=== PATIENT | male | born 1990 | race Caucasian/White ===

== ENCOUNTER 2016-12-02 18:53 | Emergency (ER) | payer OTHER ==
[~2016-12-02] VITALS: Ht 165.1 cm; Wt 90.1 kg
[~2016-12-02 18:53] MED LIST: ATRITAB PO; CIAL5TAB PO; PSEU30TA PO; TERB5 PO
[2016-12-02 19:11] VITALS: BP 155/94; PULSE 85; RESP 20; TEMP 98.9; O2SAT 100
[2016-12-02] MEDS ORDERED: SUDA30TA2 PO (19:32)
[2016-12-02] MEDS ORDERED: ABAC1TAB3 PO (19:32)
[2016-12-02] MEDS ORDERED: SODIUM CHLOR 0.9% 1000 ML INJ 1,000 ML IV SCH (19:43)
[2016-12-02] MEDS ORDERED: SODIUM CHLORIDE 0.9% FLUSH 5 ML FLUSH IVF PRN (19:45)
[2016-12-02] MEDS ORDERED: KETOROLAC TROMETHAMINE 30 MG/ML (IVP) VIAL IV PUSH ONE (20:00)
[2016-12-02] MEDS ORDERED: ONDANSETRON HCL 4 MG/2 ML VIAL IV PUSH ONE (20:00)
[2016-12-02 20:06] LABS: AUTOMATED NEUTROPHIL # 2.7 TH/MM3 (1.8-7.7); BASOPHIL # 0.1 TH/MM3 (0-0.2); BASOPHIL % 1.9 % (0.0-2.0); EOSINOPHIL % 0.6 % (0.0-4.0); HEMATOCRIT 44.9 % (39.0-51.0); HEMO FLAGS DIFF FINAL; LYMPH % 29.7 % (9.0-44.0); LYMPHOCYTE # 1.3 TH/MM3 (1.0-4.8); MEAN CELL VOLUME 94.6 FL (80.0-100.0); MEAN CORPUSCULAR HGB CONC 34.8 % (32.0-36.0); NEUT % 61.8 % (16.0-70.0); PLATELET COUNT 166 TH/MM3 (150-450); RED BLOOD COUNT 4.75 MIL/MM3 (4.50-5.90); WHITE BLOOD COUNT 4.4 TH/MM3 (4.0-11.0)
[2016-12-02 20:06] LABS: BLOOD, URINE LARGE (NEG); GLUCOSE,URINE NEG (NEG); KETONE, URINE NEG (NEG); NITRITE,URINE NEG (NEG); PH, URINE 5.5 (5.0-8.5)
[2016-12-02 20:17] VITALS: BP 154/71; PULSE 78; RESP 18; O2SAT 98
[2016-12-02 20:18] LABS: BICARBONATE 29.8 MEQ/L (21.0-32.0)
[2016-12-02 20:32] LABS: METHOD OF COLLECTION VOIDED; URINE COLOR RED (YELLW/STRAW)
[2016-12-02 20:33] LABS: COMMENT (UR) CULT NOT INDICATED; CULTURE IF INDICATED CULT NOT INDICATED; RBC, URINE INNUM /hpf (0-3); SQUAMOUS EPITHELIAL CELL URINE 0-2 /hpf (0-5)
[2016-12-02] MEDS ORDERED: TAMS5CAP PO (21:01)
[2016-12-02] MEDS ORDERED: HYDR-3366 PO (21:01)
[2016-12-02] MEDS ORDERED: ZOFR4TAB3 SL (21:01)
--- NOTE | 2016-12-02 21:02 | PD ---
HPI Chief Complaint: Flank/Kidney Pain Time Seen by Provider: 19:43 Travel History International Travel<30 days: No Contact w/Intl Traveler<30days: No Traveled to known affect area: No History of Present Illness HPI Patient 26-year-old male with a history of HIV presents to emergency department with right flank pain dysuria and hematuria. Patient states symptoms been waxing and waning sharp in nature for the past day or so. No history of kidney stones. Denies any history of fever mild nausea without vomiting. Tried ibuprofen prior to arrival without any relief. PFSH Past Medical History Arthritis: No Asthma: No Autoimmune Disease: Yes (hiv) Heart Rhythm Problems: No Cancer: No Cardiovascular Problems: No High Cholesterol: No Chest Pain: No Congestive Heart Failure: No COPD: No Cerebrovascular Accident: No Diabetes: No Diminished Hearing: No Gastrointestinal Disorders: Yes (ON ADMIT) GERD: No Genitourinary: Yes (RECURRENT PRIAPISM) Headaches: No Hiatal Hernia: No Hypertension: No Immune Disorder: Yes (HIV POSITIVE) Implanted Vascular Access Dvce: No Kidney Stones: No Musculoskeletal: No Neurologic: No Psychiatric: No Reproductive: No Respiratory: No Immunizations Current: Yes Migraines: No Renal Failure: No Seizures: No Sleep Apnea: No Thyroid Disease: No Ulcer: No Past Surgical History Abdominal Surgery: No AICD: No Arteriovenous Shunt: No Cardiac Surgery: No Ear Surgery: No Endocrine Surgery: No Eye Surgery: No Genitourinary Surgery: Yes (HYPOSPADIA) Gynecologic Surgery: No Insulin Pump: No Joint Replacement: No Neurologic Surgery: No Oral Surgery: No Pacemaker: No Thoracic Surgery: No Other Surgery: Yes Social History Alcohol Use: Yes (OCCASIONALLY) Tobacco Use: No Substance Use: No Allergies-Medications (Allergen,Severity, Reaction): Coded Allergies: No Known Allergies (Verified , 12/04/16) Reported Meds & Prescriptions Reported Meds & Active Scripts Active Zofran Odt (Ondansetron Odt) 4 Mg Tab 4 Mg SL Q6HR PRN [place] (Hydrocodone-Acetaminophen) 10-325 Mg Tab 1 Tab PO Q6H PRN Flomax (Tamsulosin HCl) 0.4 Mg Cap 0.4 Mg PO HS Reported Triumeq (Tisxlxdu-Wkosyrcrcgpz-Wtkdipmlig) 600-50-300 Mg Tab 1 Tab PO HS Hazardous agent; use appropriate precautions for handling & disposal. Sudafed (Pseudoephedrine HCl) 30 Mg Tab 30 Mg PO HS Review of Systems Except as stated in HPI: all other systems reviewed are Neg Physical Exam Narrative GENERAL: Well-developed well-nourished no apparent distress SKIN: Warm and dry. HEAD: Atraumatic. Normocephalic. EYES: Pupils equal and round. No scleral icterus. No injection or drainage. ENT: No nasal bleeding or discharge. Mucous membranes pink and moist. NECK: Trachea midline. No JVD. CARDIOVASCULAR: Regular rate and rhythm. No murmur appreciated. RESPIRATORY: No accessory muscle use. Clear to auscultation. Breath sounds equal bilaterally. GASTROINTESTINAL: Abdomen soft, non-tender, nondistended. Hepatic and splenic margins not palpable. MUSCULOSKELETAL: No obvious deformities. No clubbing. No cyanosis. No edema. Mild CVA tenderness on the right. NEUROLOGICAL: Awake and alert. No obvious cranial nerve deficits. Motor grossly within normal limits. Normal speech. PSYCHIATRIC: Appropriate mood and affect; insight and judgment normal. Data Data Last Documented VS Vital Signs Date Time Temp Pulse Resp B/P Pulse Ox O2 Delivery O2 Flow Rate FiO2 12/02/16 21:05 14 12/02/16 21:05 84 131/79 99 Room Air 12/02/16 19:11 98.9 Orders Basic Metabolic Panel (Bmp) (12/02/16 19:43) Complete Blood Count With Diff (12/02/16 19:43) Urinalysis - C+S If Indicated (12/02/16 19:43) Iv Access Insert/Monitor (12/02/16 19:43) Ecg Monitoring (12/02/16 19:43) Oximetry (12/02/16 19:43) Sodium Chlor 0.9% 1000 Ml Inj (Ns 1000 M (12/02/16 19:43) Sodium Chloride 0.9% Flush (Ns Flush) (12/02/16 19:45) Ketorolac Inj (Toradol Inj) (12/02/16 20:00) Ondansetron Inj (Zofran Inj) (12/02/16 20:00) Ed Poc Ultrasound (12/02/16 ) Labs Laboratory Tests Test 12/02/16 12/02/16 19:45 19:50 Urine Collection Type VOIDED Urine Color RED Urine Turbidity CLOUDY Urine pH 5.5 Urine Specific Waves 1.025 Urine Protein 30 mg/dL Urine Glucose (UA) NEG mg/dL Urine Ketones NEG mg/dL Urine Occult Blood LARGE Urine Nitrite NEG Urine Bilirubin NEG Urine Leukocyte Esterase NEG Urine RBC INNUM /hpf Urine WBC 3-5 /hpf Urine Squamous Epithelial 0-2 /hpf Cells Microscopic Urinalysis Comment CULT NOT INDICATED White Blood Count 4.4 TH/MM3 Red Blood Count 4.75 MIL/MM3 Hemoglobin 15.6 GM/DL Hematocrit 44.9 % Mean Corpuscular Volume 94.6 FL Mean Corpuscular Hemoglobin 33.0 PG Mean Corpuscular Hemoglobin 34.8 % Concent Red Cell Distribution Width 12.0 % Platelet Count 166 TH/MM3 Mean Platelet Volume 8.0 FL Neutrophils (%) (Auto) 61.8 % Lymphocytes (%) (Auto) 29.7 % Monocytes (%) (Auto) 6.0 % Eosinophils (%) (Auto) 0.6 % Basophils (%) (Auto) 1.9 % Neutrophils # (Auto) 2.7 TH/MM3 Lymphocytes # (Auto) 1.3 TH/MM3 Monocytes # (Auto) 0.3 TH/MM3 Eosinophils # (Auto) 0.0 TH/MM3 Basophils # (Auto) 0.1 TH/MM3 CBC Comment DIFF FINAL Differential Comment Sodium Level 141 MEQ/L Potassium Level 4.0 MEQ/L Chloride Level 104 MEQ/L Carbon Dioxide Level 29.8 MEQ/L Anion Gap 7 MEQ/L Blood Urea Nitrogen 14 MG/DL Creatinine 1.10 MG/DL Estimat Glomerular Filtration 81 ML/MIN Rate Random Glucose 130 MG/DL Calcium Level 9.0 MG/DL [facility] Medical Decision Making Medical Screen Exam Complete: Yes Emergency Medical Condition: Yes Differential Diagnosis Renal colic, kidney stone, UTI, hydronephrosis, sepsis unlikely. Narrative Course S/S c/w renal colic. Tolerating pain after medications, no hydronephrosis. Can forgo CT scan, discussed with patient and he is agreeable. Feeling better after toradol. DIscussed need for follow up with PCP. He is agreeable. Procedures Procedure Narrative BS us kidneys shows normal kidneys bilaterally no hydronephrosis. No stone visualized. No abdominal free fluid. Diagnosis Primary Impression: Renal colic Additional Impression: Abdominal pain Med/Other Pt SpecificInfo: Prescription(s) given Scripts Ondansetron Odt (Zofran Odt)4 Mg Tab4 Mg SL Q6HR PRN (Nausea/Vomiting) #30 TAB Ref 0 Prov:Marcus Roe MD 12/02/16 Hydrocodone-Acetaminophen ([place])10-325 Mg Tab1 Tab PO Q6H PRN (PAIN) #15 TAB Ref 0 Prov:Marcus Roe MD 12/02/16 Tamsulosin (Flomax)0.4 Mg Cap0.4 Mg PO HS #30 CAP Ref 0 Prov:Marcus Roe MD 12/02/16 Disposition: 01 DISCHARGE HOME Condition: Stable Marcus Roe MD Dec 02, 2016 21:02
[2016-12-02 21:05] VITALS: BP 131/79; PULSE 84; RESP 14; O2SAT 99
[2017-01-23] MEDS ORDERED: HYDR-3516 PO (09:24)
[2017-02-03] MEDS ORDERED: CEPH-459 PO (13:02)
[2017-02-03] MEDS ORDERED: HYDR-3533 PO (13:02)
== END 2016-12-02 21:10 | disposition home or self-care (01) ==
LOC: PHEFT 18:53
DX: N23 Unspecified renal colic (principal); R10.9 Unspecified abdominal pain
CPT/HCPCS: 80048; 81001; 85025; 96361; 96374; 96375; 99284; J1885; J2405; J7030

== ENCOUNTER 2016-12-04 11:13 | Emergency (ER) | payer OTHER ==
[~2016-12-04] VITALS: Ht 167.6 cm; Wt 85.0 kg
[~2016-12-04 11:13] MED LIST changes: +ABAC1TAB3 PO; -ATRITAB PO; -CIAL5TAB PO; +HYDR-3366 PO; -PSEU30TA PO; +SUDA30TA2 PO; +TAMS5CAP PO; -TERB5 PO; +ZOFR4TAB3 SL
[2016-12-04 11:15] VITALS: BP 169/97; PULSE 118; RESP 14; TEMP 97.8; O2SAT 97
[2016-12-04] MEDS ORDERED: TERBUTALINE INJ 1 MG/ML AMP SQ ONE ×4 (12:00→14:15)
[2016-12-04] MEDS ORDERED: PSEUDOEPHEDRINE HCL 30 MG TAB PO ONE ×2 (12:00)
--- NOTE | 2016-12-04 12:31 | PD ---
HPI Chief Complaint: Complaint Time Seen by Provider: 11:48 Travel History International Travel<30 days: No Contact w/Intl Traveler<30days: No Traveled to known affect area: No History of Present Illness HPI Patient is a 26-year-old male who presents to emergency room with complaints of priapism. Patient reports that he has had history of priapism in the past, reports that he follows with urologist for this. Reports that he was recently seen emergency room and was started on Flomax, reports that he is not sure if this caused him to have his symptoms today. Patient reports that he woke up with his symptoms at 7 AM, patient did try take pseudophed 3 hours prior to coming to ER - reports no relief of symptoms. PFSH Past Medical History Arthritis: No Asthma: No Autoimmune Disease: Yes (HIV) Anxiety: Yes Heart Rhythm Problems: No Cancer: No Cardiovascular Problems: No High Cholesterol: No Chest Pain: No Congestive Heart Failure: No COPD: No Cerebrovascular Accident: No Diabetes: No Diminished Hearing: No Gastrointestinal Disorders: Yes GERD: No Genitourinary: Yes (RECURRENT PRIAPISM) Headaches: No Hiatal Hernia: No Hypertension: No Immune Disorder: Yes (HIV POSITIVE) Implanted Vascular Access Dvce: No Kidney Stones: Yes Musculoskeletal: No Neurologic: No Psychiatric: No Reproductive: No Respiratory: No Immunizations Current: Yes Migraines: No Renal Failure: No Seizures: No Sleep Apnea: No Thyroid Disease: No Ulcer: No Tetanus Vaccination: > 5 Years Past Surgical History Abdominal Surgery: No AICD: No Arteriovenous Shunt: No Cardiac Surgery: No Ear Surgery: No Endocrine Surgery: No Eye Surgery: No Genitourinary Surgery: Yes (HYPOSPADIA) Gynecologic Surgery: No Insulin Pump: No Joint Replacement: No Neurologic Surgery: No Oral Surgery: No Pacemaker: No Thoracic Surgery: No Other Surgery: Yes Social History Alcohol Use: Yes (OCCASIONALLY) Tobacco Use: No Substance Use: No Allergies-Medications (Allergen,Severity, Reaction): Coded Allergies: No Known Allergies (Verified , 12/04/16) Reported Meds & Prescriptions Reported Meds & Active Scripts Active Zofran Odt (Ondansetron Odt) 4 Mg Tab 4 Mg SL Q6HR PRN [place] (Hydrocodone-Acetaminophen) 10-325 Mg Tab 1 Tab PO Q6H PRN Flomax (Tamsulosin HCl) 0.4 Mg Cap 0.4 Mg PO HS Reported Triumeq (Ngwpbpkg-Pnyxayhsedmy-Hacuqgzvgn) 600-50-300 Mg Tab 1 Tab PO HS Hazardous agent; use appropriate precautions for handling & disposal. Sudafed (Pseudoephedrine HCl) 30 Mg Tab 30 Mg PO HS Review of Systems General / Constitutional: No: Fever Eyes: No: Visual changes HENT: No: Headaches Cardiovascular: No: Chest Pain or Discomfort Respiratory: No: Shortness of Breath Gastrointestinal: No: Abdominal Pain Genitourinary: Positive: Other (priaprism), No: Dysuria Musculoskeletal: No: Pain Skin: No Rash Neurologic: No: Weakness Psychiatric: No: Depression Endocrine: No: Polydipsia Hematologic/Lymphatic: No: Easy Bruising Physical Exam Narrative GENERAL: NAD SKIN: Warm and dry. HEAD: Atraumatic. Normocephalic. EYES: Pupils equal and round. No scleral icterus. No injection or drainage. ENT: No nasal bleeding or discharge. Mucous membranes pink and moist. NECK: Trachea midline. No JVD. CARDIOVASCULAR: Regular rate and rhythm. No murmur appreciated. RESPIRATORY: No accessory muscle use. Clear to auscultation. Breath sounds equal bilaterally. GASTROINTESTINAL: Abdomen soft, non-tender, nondistended. Hepatic and splenic margins not palpable. : pt with priapism on exam MUSCULOSKELETAL: No obvious deformities. No clubbing. No cyanosis. No edema. NEUROLOGICAL: Awake and alert. No obvious cranial nerve deficits. Motor grossly within normal limits. Normal speech. PSYCHIATRIC: Appropriate mood and affect; insight and judgment normal. Data Data Last Documented VS Vital Signs Date Time Temp Pulse Resp B/P Pulse Ox O2 Delivery O2 Flow Rate FiO2 12/04/16 16:19 111 18 129/80 97 Room Air 12/04/16 11:15 97.8 Orders Terbutaline Inj (Brethine Inj) (12/04/16 12:00) Pseudoephedrine (Sudafed) (12/04/16 12:00) Pseudoephedrine (Sudafed) (12/04/16 12:00) Terbutaline Inj (Brethine Inj) (12/04/16 13:00) Terbutaline Inj (Brethine Inj) (12/04/16 13:15) Terbutaline Inj (Brethine Inj) (12/04/16 14:15) Lidocaine 1% Inj (Xylocaine 1% Inj) (12/04/16 14:30) Phenylephrine Inj (Neosynephrine Inj)... (12/04/16 15:30) Sodium Chlor 0.9% 1000 Ml Inj (Ns 1000 M (12/04/16 15:45) Sodium Chlor 0.9% 1000 Ml Inj (Ns 1000 M (12/04/16 15:45) Drug Screen, Random Urine (12/04/16 16:18) Phenylephrine Inj (Neosynephrine Inj)... (12/04/16 16:30) Labs Laboratory Tests Test 12/04/16 16:20 Urine Opiates Screen POS Urine Barbiturates Screen NEG Urine Amphetamines Screen NEG Urine Benzodiazepines Screen NEG Urine Cocaine Screen NEG Urine Cannabinoids Screen NEG MDM Medical Decision Making Medical Screen Exam Complete: Yes Emergency Medical Condition: Yes Interpretation(s) Vital Signs Date Time Temp Pulse Resp B/P Pulse Ox O2 Delivery O2 Flow Rate FiO2 12/04/16 11:33 17 12/04/16 11:15 97.8 118 14 169/97 97 Room Air Differential Diagnosis priapism secondary to flomax Narrative Course Patient is a 26-year-old male who presents to emergency room with complaints of recurrent priapism. Plan to give patient noted dose of pseudoephedrine and will give him terbutaline 0.25mg subcutaneous every 15 minutes 4 and then reevaluate patient. Patient had multiple attempts to reduce his priapism, patient was given by mouth pseudoephedrine as well as subcutaneous terbutaline 0.25 mg 4 with no relief of symptoms. Penile block was placed by myself using lidocaine, attempt was made to drain corpus cavernosus using 18 gauge needle. 4 attempts were made with no avial. I then injected 100 g of phenylephrine into right side of corpus cavernosus with no relief of symptoms Call made to urologist Case reviewed with Dr. Manohar Villela came to the emergency room and evaluated patient. He was able to successfully reduce patient's priapism with drainage of corpus cavernosus b/l and with a total of 500 g of phenylephrine injected to the right side of the corpus cavernosus Patient was monitored for an hour after procedure, patient understands need to follow-up with his urologist Dr Gonzalez in office Patient will return to ER as needed Patient with complete resolution of symptoms after intervention by Dr. Villela. Patient was monitored for over an hour after procedure. Patient will follow-up with his urologist and return here as needed Procedures Procedure Narrative Penile nerve block performed by myself on patient using 10 mL's of 1% lidocaine without epinephrine. After penal block performed, I used a 18-gauge needle and inserted it to the left and right-sided corpus cavernosus, there was minimal drainage of blood bilaterally. Again, to 18-gauge needles were placed one to the left side corpus cavernosus and one to left side of corpus cavernosus - there was minimal drainage of blood, 100microgram of phenyephrine was inserted into right side of corpus cavernosus with no relief of symptoms Call made to urology, Dr. Villela was able to evacuate blood from bilateral corpus cavernosus, but total 500 g of phenylephrine was injected, patient had relief of symptoms after this procedure. Diagnosis Primary Impression: Priapism Patient Instructions: General Instructions Additional Instructions: Please follow-up with in office Return to ER as needed Please stop using Flomax Disposition: 01 DISCHARGE HOME Condition: Stable Yvette Chapman DO Dec 04, 2016 12:31
[2016-12-04] MEDS ORDERED: LIDOCAINE HCL 1% 30 ML VIAL INFIL ONE (14:30)
[2016-12-04] MEDS ORDERED: PHENYLEPHRINE 500 MCG/1 ML NS in SYRINGE I-CAVITARY ONE ×8 (15:15→15:30)
[2016-12-04] MEDS ORDERED: SODIUM CHLOR 0.9% 1000 ML INJ 1,000 ML IV ONE ×2 (15:45)
[2016-12-04 16:19] VITALS: BP 129/80; PULSE 111; RESP 18; O2SAT 97
[2016-12-04] MEDS ORDERED: PHENYLEPHRINE INJ 0.5 MG, SODIUM CHLORIDE 0.9% INJ 0.95 ML in SYRINGE/BAG 1 EA I-CAVITARY ONE ×2 (16:30)
[2016-12-04 17:16] LABS: AMPHETAMINE, URINE NEG (NEG); BARBITURATES, URINE NEG (NEG); COCAINE, URINE NEG (NEG)
--- NOTE | 2016-12-04 18:23 | MB ---
cc: JOSEFINA PALOMINO DATE OF CONSULTATION: 12/04/2016 REASON FOR CONSULTATION: HISTORY OF PRESENT ILLNESS: Mr. Santos is a pleasant 26-year-old male who currently has HIV, who came in with priapism. His erection started last night. He presented this morning around 11:30. Urology was consulted in order to attempt to reduce his priapism. He states he has had this multiple times in the past and has required phenylephrine injections and he currently takes Sudafed at home. Other medical problems include HIV positive and history of hypospadius. PAST SURGICAL HISTORY: Notable for hypospadias repair in the past. ALLERGIES: NO KNOWN DRUG ALLERGIES. MEDICATIONS: Per the chart. REVIEW OF SYSTEMS: Denies chest pain, shortness of breath, gait disturbances bleeding disorders, immune problems, known for HIV. No musculoskeletal problems. No rashes. No neurologic problems. PHYSICAL EXAMINATION: VITAL SIGNS: Presently afebrile, vital signs stable. GENERAL: A well-developed, well-nourished 26 year-old male in no acute distress. HEENT: Normocephalic, atraumatic. Pupils equal, round and reactive to light. Extraocular movements intact. NECK: Supple. HEART: Regular rate and rhythm. LUNGS: Clear. ABDOMEN: Soft, non-tender, non-distended. GENITOURINARY: He has priapism. Testes are descended. EXTREMITIES: No clubbing, cyanosis or edema. At the bedside, phenylephrine was injected, a total of 500 mcg per 1 mL. He was monitored throughout this and his priapism eventually resolved. He also was irrigated and some old blood was removed from the corpora. The patient tolerated the procedure well. ASSESSMENT: The patient is a 26 year-old male with recurrent priapism. Priapism reduced at approximately around 5 o'clock in the emergency room. Will continue with IV fluids and monitor for the next hour. If stable, can follow up with Dr. Gonzalez as an outpatient. Will hold Flomax as this may be the culprit. Will follow as an outpatient. Pedro BOLDEN/ANNA /5:06 PM /6:18 PM
[2016-12-04 19:14] VITALS: BP 134/77; O2SAT 97
[2017-01-23] MEDS ORDERED: HYDR-3516 PO (09:24)
[2017-02-03] MEDS ORDERED: HYDR-3533 PO (13:02)
[2017-02-03] MEDS ORDERED: CEPH-459 PO (13:02)
== END 2016-12-04 19:24 | disposition home or self-care (01) ==
LOC: NEPC 11:13
DX: N48.30 Priapism, unspecified (principal); Z21 Asymptomatic human immunodeficiency virus [HIV] infection status; Z87.442 Personal history of urinary calculi
CPT/HCPCS: 54220; 80307; 96361; 96372; 96374; 99283; J2370; J3105; J7030

== ENCOUNTER 2016-12-28 17:30 | Emergency (ER) | payer OTHER ==
[~2016-12-28] VITALS: Ht 165.1 cm; Wt 88.6 kg
[2016-12-28 17:38] VITALS: BP 135/94; PULSE 82; RESP 16; TEMP 97.9; O2SAT 99
[2016-12-28] MEDS ORDERED: SODIUM CHLORIDE 0.9% FLUSH 5 ML FLUSH IVF PRN (18:00)
[2016-12-28] MEDS ORDERED: SODIUM CHLOR 0.9% 1000 ML INJ 1,000 ML IV SCH (18:00)
[2016-12-28] MEDS ORDERED: KETOROLAC TROMETHAMINE 30 MG/ML (IVP) VIAL IVP ONE (18:00)
[2016-12-28] MEDS ORDERED: ONDANSETRON HCL 4 MG/2 ML VIAL IV ONE (18:00)
[2016-12-28] MEDS ORDERED: HYDROmorphone HCL PF 1 MG/ML VIAL IVS ONE (18:00)
--- NOTE | 2016-12-28 18:22 | PD ---
HPI Chief Complaint: Flank/Kidney Pain Time Seen by Provider: 17:47 Travel History International Travel<30 days: No Contact w/Intl Traveler<30days: No Traveled to known affect area: No History of Present Illness HPI The 26-year-old male with a history of HIV who presents to the emergency department complaining of right flank pain, ongoing for the past couple weeks intermittent, fairly mild, was seen emergency Department several weeks ago with diagnosed presumptively of right renal lithiasis based on hematuria and a platelet care ultrasound that didn't show hydronephrosis. Over the past weeks it is been a little more frequent and this morning they came on abruptly, worse of your constant and worsening throughout the day. Associated with nausea but no vomiting. Chills. He said dark urine as well. Review of systems positive for some constipation as well. History Past Medical History Narrative Medical HIV Recurrent priapism Social History Alcohol Use: Yes (OCCASIONALLY) Tobacco Use: No Allergies-Medications (Allergen,Severity, Reaction): Coded Allergies: No Known Allergies (Verified , 12/28/16) Reported Meds & Prescriptions Reported Meds & Active Scripts Active Lortab (Hydrocodone-Acetaminophen) 5-325 Mg Tab 1-2 Tab PO Q6H PRN Zofran Odt (Ondansetron Odt) 4 Mg Tab 4 Mg SL Q8HR PRN May substitute non-ODT form. Naprosyn (Naproxen) 500 Mg Tab 500 Mg PO BID PRN Zofran Odt (Ondansetron Odt) 4 Mg Tab 4 Mg SL Q6HR PRN [place] (Hydrocodone-Acetaminophen) 10-325 Mg Tab 1 Tab PO Q6H PRN Reported Triumeq (Mqwxptkd-Qcumkdlrupgw-Fecnuvivdd) 600-50-300 Mg Tab 1 Tab PO HS Hazardous agent; use appropriate precautions for handling & disposal. Sudafed (Pseudoephedrine HCl) 30 Mg Tab 30 Mg PO HS Review of Systems Except as stated in HPI: all other systems reviewed are Neg Physical Exam Narrative GENERAL: 26 year-old man, appears uncomfortable, nontoxic. Writhing at times. SKIN: Warm and dry. NECK: Trachea midline. No JVD. CARDIOVASCULAR: Regular rate and rhythm. No murmur appreciated. RESPIRATORY: No accessory muscle use. Clear to auscultation. Breath sounds equal bilaterally. GASTROINTESTINAL: Abdomen soft, non-tender, nondistended. Hepatic and splenic margins not palpable. No CVA tenderness to percussion. MUSCULOSKELETAL: No obvious deformities. No edema. NEUROLOGICAL: Awake and alert. No obvious cranial nerve deficits. Motor grossly within normal limits. Normal speech. PSYCHIATRIC: Appropriate mood and affect; insight and judgment normal. Data Data Last Documented VS Vital Signs Date Time Temp Pulse Resp B/P Pulse Ox O2 Delivery O2 Flow Rate FiO2 12/28/16 17:38 97.9 82 16 135/94 99 Orders Basic Metabolic Panel (Bmp) (12/28/16 17:56) Complete Blood Count With Diff (12/28/16 17:56) Lipase (12/28/16 17:56) Urinalysis - C+S If Indicated (12/28/16 17:56) Ct Abd/Pel W/O Iv Contrast (12/28/16 17:56) Iv Access Insert/Monitor (12/28/16 17:56) NPO (12/28/16 17:56) Sodium Chloride 0.9% Flush (Ns Flush) (12/28/16 18:00) Ketorolac Inj (Toradol Inj) (12/28/16 18:00) Hydromorphone Pf Inj (Dilaudid Pf Inj) (12/28/16 18:00) Ondansetron Inj (Zofran Inj) (12/28/16 18:00) Sodium Chlor 0.9% 1000 Ml Inj (Ns 1000 M (12/28/16 18:00) Labs Laboratory Tests Test 12/28/16 12/28/16 18:30 18:35 White Blood Count 5.8 TH/MM3 Red Blood Count 4.15 MIL/MM3 Hemoglobin 13.2 GM/DL Hematocrit 38.6 % Mean Corpuscular Volume 92.9 FL Mean Corpuscular Hemoglobin 31.7 PG Mean Corpuscular Hemoglobin 34.2 % Concent Red Cell Distribution Width 11.7 % Platelet Count 228 TH/MM3 Mean Platelet Volume 7.4 FL Neutrophils (%) (Auto) 77.8 % Lymphocytes (%) (Auto) 16.1 % Monocytes (%) (Auto) 4.9 % Eosinophils (%) (Auto) 0.7 % Basophils (%) (Auto) 0.5 % Neutrophils # (Auto) 4.6 TH/MM3 Lymphocytes # (Auto) 0.9 TH/MM3 Monocytes # (Auto) 0.3 TH/MM3 Eosinophils # (Auto) 0.0 TH/MM3 Basophils # (Auto) 0.0 TH/MM3 CBC Comment DIFF FINAL Differential Comment Sodium Level 141 MEQ/L Potassium Level 3.9 MEQ/L Chloride Level 107 MEQ/L Carbon Dioxide Level 25.1 MEQ/L Anion Gap 9 MEQ/L Blood Urea Nitrogen 12 MG/DL Creatinine 1.00 MG/DL Estimat Glomerular Filtration 90 ML/MIN Rate Random Glucose 110 MG/DL Calcium Level 8.7 MG/DL Lipase 67 U/L Urine pH 6.0 Urine Protein 30 mg/dL Urine Glucose (UA) NEG mg/dL Urine Ketones NEG mg/dL Urine Occult Blood LARGE Urine Nitrite NEG Urine Bilirubin NEG Urine Leukocyte Esterase NEG MDM Medical Decision Making Medical Screen Exam Complete: Yes Emergency Medical Condition: Yes Interpretation(s) My review of CT scan shows a 3-4 mm stone in the right UVJ. Labs unremarkable Differential Diagnosis Renal lithiasis, dissection, pancreatitis, renal mass, renal infarct, other Narrative Course Medical decision making INITIAL calls a 26-year-old man who presents to the emergency department complaining of right flank pain. Suspect renal lithiasis. Previous similar episode. CT imaging was deferred at that visit. We'll check labs, urine, CT imaging, reassess. Diagnosis Primary Impression: Right kidney stone Additional Instructions: Take Naprosyn as needed for pain. Take Lortab as needed for severe pain. Take Zofran as needed for nausea or vomiting. Follow-up with your urologist in the next 2-4 days. Return to the emergency department for any new or worsening symptoms. Med/Other Pt SpecificInfo: Prescription(s) given Scripts Hydrocodone-Acetaminophen (Lortab)5-325 Mg Tab1-2 Tab PO Q6H PRN (PAIN) #20 TAB Prov:Jeremy Francis MD 12/28/16 Ondansetron Odt (Zofran Odt)4 Mg Tab4 Mg SL Q8HR PRN (Nausea/Vomiting) #15 TAB May substitute non-ODT form. Prov:Jermey Francis MD 12/28/16 Naproxen (Naprosyn)500 Mg [id number] Mg PO BID PRN (PAIN SCALE 1 TO 10) #20 TAB Prov:Jeremy Francis MD 12/28/16 Disposition: 01 DISCHARGE HOME Condition: Stable Jeremy Francis MD Dec 28, 2016 18:22
--- NOTE | 2016-12-28 18:48 | RADHPO ---
EXAM DATE/TIME: 12/28/2016 18:06 [place] COMPARISON: No previous studies available for comparison. INDICATIONS : Right flank pain today. ORAL CONTRAST: No oral contrast ingested. RADIATION DOSE: 16.44 CTDIvol (mGy) MEDICAL HISTORY : Renal calculi. HIV. SURGICAL HISTORY : None. ENCOUNTER: Initial ACUITY: 1 day PAIN SCALE: 10/10 LOCATION: Right flank TECHNIQUE: Volumetric scanning of the abdomen and pelvis was performed. Using automated exposure control and ad justment of the mA and/or kV according to patient size, radiation dose was kept as low as reasonably achievable to obtain optimal diagnostic quality images. FINDINGS: There is an approximately 3.5 mm calculus in the right ureteropelvic junction with mild right-sided h ydronephrosis. No other renal calculi. No calculi in the remainder of the ureters. No bladder calculi . Visualized portions of the spleen adrenals and pancreas unremarkable. No obstruction. CONCLUSION: 1. 3.5 mm calculus at right UPJ with minimal right-sided hydronephrosis. Kendrick Penaloza MD on December 28, 2016 at 18:43 Board Certified Radiologist. This report was verified electronically.
[2016-12-28 18:49] LABS: BLOOD, URINE LARGE (NEG); GLUCOSE,URINE NEG (NEG); KETONE, URINE NEG (NEG); NITRITE,URINE NEG (NEG)
[2016-12-28 18:51] LABS: AUTOMATED NEUTROPHIL # 4.6 TH/MM3 (1.8-7.7); BASOPHIL % 0.5 % (0.0-2.0); EOSINOPHIL % 0.7 % (0.0-4.0); HEMATOCRIT 38.6 % (39.0-51.0); HEMO FLAGS DIFF FINAL; LYMPH % 16.1 % (9.0-44.0); LYMPHOCYTE # 0.9 TH/MM3 (1.0-4.8); MEAN CELL VOLUME 92.9 FL (80.0-100.0); MEAN CORPUSCULAR HEMOGLOBIN 31.7 PG (27.0-34.0); MEAN CORPUSCULAR HGB CONC 34.2 % (32.0-36.0); MONO % 4.9 % (0.0-8.0); NEUT % 77.8 % (16.0-70.0); PLATELET COUNT 228 TH/MM3 (150-450); RED BLOOD COUNT 4.15 MIL/MM3 (4.50-5.90); RED CELL DISTRIBUTION WIDTH 11.7 % (11.6-17.2); WHITE BLOOD COUNT 5.8 TH/MM3 (4.0-11.0)
[2016-12-28] MEDS ORDERED: NAPR500 PO (18:51)
[2016-12-28] MEDS ORDERED: HYDR-3533 PO (18:51)
[2016-12-28] MEDS ORDERED: ZOFR4TAB3 SL (18:51)
[2016-12-28 18:58] LABS: POTASSIUM 3.9 MEQ/L (3.5-5.1)
[2016-12-28 19:01] LABS: BICARBONATE 25.1 MEQ/L (21.0-32.0)
[2016-12-28 19:10] LABS: METHOD OF COLLECTION VOIDED; MUCUS URINE RARE /lpf (OCC); SQUAMOUS EPITHELIAL CELL URINE 0-2 /hpf (0-5); URINE COLOR DARK-YELLOW (YELLW/STRAW); WBC, URINE 0-2 /hpf (0-5)
[2016-12-28 19:11] LABS: COMMENT (UR) CULT NOT INDICATED; CULTURE IF INDICATED CULT NOT INDICATED
[2016-12-28 19:17] VITALS: BP 141/65
[2017-01-23] MEDS ORDERED: HYDR-3516 PO (09:24)
[2017-02-03] MEDS ORDERED: CEPH-459 PO (13:02)
[2017-02-03] MEDS ORDERED: HYDR-3533 PO (13:02)
== END 2016-12-28 19:19 | disposition home or self-care (01) ==
LOC: PHED 17:30
DX: N20.0 Calculus of kidney (principal)
CPT/HCPCS: 74176; 80048; 81001; 83690; 85025; 96361; 96374; 96375; 99284; J1170; J1885; J2405; J7030

== ENCOUNTER → 2017-02-03 | Day surgery (SDC) | payer OTHER ==
[~2017-02-03] VITALS: Ht 167.6 cm; Wt 87.7 kg
[~2017-02-03] MED LIST changes: +*morphine SULFATE 8 MG/ML PERIprocedure ONLY ONE; +ACETAMINOPHEN/HYDROcodone 325 MG/5 MG TAB PO PRN; +CEPH-459 PO; +DEXAMETHASONE SOD PHOS 4 MG/ML VIAL ONE; +DO NOT ADM ANY ANTICOAGULANT DRUGS XX PRN; +FAMOTIDINE 20 MG/2 ML VIAL ONE; +HYDR-3516 PO; +HYDR-3533 PO; +INSULIN HUMAN REGULAR 1,000 UNITS/10 ML VIAL SQ PRN; +IOHEXOL 350 MG/ML 10 ML VIAL (for RAD DIAG) ONE; +LACTATED RINGER'S 1000 ML IV SCH; +METOPROLOL TARTRATE 25 MG TAB PO PRN; +MIDAZOLAM HCL 2 MG/2 ML VIAL ONE; +NAPR500 PO; +ONDANSETRON HCL 4 MG/2 ML VIAL IV PUSH ONE; +ONDANSETRON HCL 4 MG/2 ML VIAL IV PUSH PRN; +PROPOFOL 200 MG/20 ML AMP IV ONE; +SODIUM CHLORID 0.9% 500 ML IV SCH; -TAMS5CAP PO; +ceFAZolin 2 GM PREMIX 50 ML IV SCH
[2017-02-03 10:10] VITALS: BP 126/87; PULSE 88; RESP 20; TEMP 98.4; O2SAT 99
[2017-02-03 10:23] LABS: AUTOMATED NEUTROPHIL # 4.9 TH/MM3 (1.8-7.7); BASOPHIL % 0.3 % (0.0-2.0); EOSINOPHIL # 0.1 TH/MM3 (0-0.4); EOSINOPHIL % 1.4 % (0.0-4.0); HEMATOCRIT 39.3 % (39.0-51.0); HEMO FLAGS DIFF FINAL; LYMPH % 13.3 % (9.0-44.0); LYMPHOCYTE # 0.8 TH/MM3 (1.0-4.8); MEAN CELL VOLUME 90.4 FL (80.0-100.0); MEAN CORPUSCULAR HEMOGLOBIN 31.4 PG (27.0-34.0); MEAN CORPUSCULAR HGB CONC 34.8 % (32.0-36.0); MONO % 7.4 % (0.0-8.0); NEUT % 77.6 % (16.0-70.0); PLATELET COUNT 166 TH/MM3 (150-450); RED BLOOD COUNT 4.35 MIL/MM3 (4.50-5.90); WHITE BLOOD COUNT 6.3 TH/MM3 (4.0-11.0)
--- NOTE | 2017-02-03 13:09 | PD.OP ---
Operative Report Date of Surgery: Feb 03, 2017 Preoperative Diagnosis: (1) Ureteral calculus, right Postoperative Diagnosis: (1) Ureteral calculus, right (2) Urethral stricture Procedure: Balloon dilation of urethral stricture, cystoscopy with stone extraction and right ureteroscopy Anesthesia: General Surgeon: Rakesh Gonzalez Supervisor Motor Vehicle Assembly(s): None Operation and Findings: Indication for procedure: Pleasant 27 year-old gentleman with recent development right flank pain. Workup included a CT scan that demonstrated an obstructing right distal ureteral calculus. Presents now for ureteroscopic stone extraction. Operative procedure in detail: Patient was brought to the operating room and placed supine on the cystoscopy table. He was then placed under general anesthesia. He was then repositioned in the dorsal lithotomy position and prepped and draped in normal sterile fashion. After appropriate timeout was undertaken I proceeded with attempted cystoscopy utilizing the rigid cystoscope with the 19 Afghan sheath. The scope was only able to be advanced approximately 1 cm the patient was noted to have a very tight urethral stricture. The cystoscope was withdrawn and I attempted to gently dilate the stricture with male dilators however I was unable to be advanced even the smallest dilator available. I was then able to pass a sensor 0.035 wire endoscopically through the stricture and subsequently balloon dilated the stricture with a UroMax 18 Afghan balloon dilation catheter. I was then able to further dilate the stricture utilizing a disposable suprapubic catheter insertion device. Subsequent to this cystoscopy was performed and the stone could be seen residing within the urethra. A 2.4 Afghan stone basket was utilized and the stone captured and removed. It was sent off for chemical composition analysis. The remainder cystoscopic evaluation failed to demonstrate any additional ureteral stones or other strictured segments. The prostate was nonobstructing. There were no bladder stones or abnormalities noted. The cystoscope was exchanged for the self dilating ureteroscope and right ureteroscopy was performed. I was able to further advance the pre-was a past wire up the right ureter into the right kidney and past ureteroscope alongside this wire. The scope was advanced all the way up to the right ureteropelvic junction and no additional stones were seen. The ureteroscope was then withdrawn a [address] [place] Alexis was then passed over the wire and the wire withdrawn. The Alexis catheter was connected to gravity drainage. The patient tolerated the procedures without, patient transferred to the PACU in satisfactory condition. Rakesh Gonzalez MD Feb 03, 2017 13:09
[2017-02-03 14:54] VITALS: BP 146/74; PULSE 80; RESP 20; TEMP 97.5; O2SAT 97
== END | disposition home or self-care (01) ==
LOC: HSDC 09:17
PROVIDERS: ATTEND Urology
DX: N20.1 Calculus of ureter (principal); N35.9 Urethral stricture, unspecified; Z21 Asymptomatic human immunodeficiency virus [HIV] infection status; Z87.891 Personal history of nicotine dependence; R41.3 Other amnesia
CPT/HCPCS: 00910; 52320; 74420; 82370; 85025; 88300; C1726; C1769; J0690; J1100; J2250; J2270; J2405; J3010; J7120; Q9967

== ENCOUNTER 2017-10-02 12:21 | Emergency (ER) | payer OTHER ==
[~2017-10-02 12:21] MED LIST changes: -*morphine SULFATE 8 MG/ML PERIprocedure ONLY ONE; -ACETAMINOPHEN/HYDROcodone 325 MG/5 MG TAB PO PRN; -CEPH-459 PO; -DEXAMETHASONE SOD PHOS 4 MG/ML VIAL ONE; -DO NOT ADM ANY ANTICOAGULANT DRUGS XX PRN; -FAMOTIDINE 20 MG/2 ML VIAL ONE; -HYDR-3366 PO; -HYDR-3516 PO; -HYDR-3533 PO; -INSULIN HUMAN REGULAR 1,000 UNITS/10 ML VIAL SQ PRN; -IOHEXOL 350 MG/ML 10 ML VIAL (for RAD DIAG) ONE; -LACTATED RINGER'S 1000 ML IV SCH; -METOPROLOL TARTRATE 25 MG TAB PO PRN; -MIDAZOLAM HCL 2 MG/2 ML VIAL ONE; -NAPR500 PO; -ONDANSETRON HCL 4 MG/2 ML VIAL IV PUSH ONE; -ONDANSETRON HCL 4 MG/2 ML VIAL IV PUSH PRN; -PROPOFOL 200 MG/20 ML AMP IV ONE; +PSEU30TA82; -SODIUM CHLORID 0.9% 500 ML IV SCH; -SUDA30TA2 PO; -ZOFR4TAB3 SL; -ceFAZolin 2 GM PREMIX 50 ML IV SCH
[2017-10-02 12:24] VITALS: BP 174/109; PULSE 92; RESP 16; TEMP 98.8; O2SAT 98
[2017-10-02] MEDS ORDERED: PSEU30TA82 PO (13:43)
[2017-10-02] MEDS ORDERED: triumeq PO (13:44)
[2017-10-02] MEDS ORDERED: LIDOCAINE HCL 1% 50 ML VIAL INFIL ONE (13:45)
[2017-10-02] MEDS ORDERED: PHENYLEPH/NS 1000 MCG/10 ML SYR OTHER ONE (13:45)
[2017-10-02] MEDS ORDERED: PSEUDOEPHEDRINE HCL 30 MG TAB PO ONE ×2 (13:45→14:00)
--- NOTE | 2017-10-02 14:11 | PD ---
HPI Chief Complaint: Complaint Time Seen by Provider: 13:39 Travel History International Travel<30 days: No Contact w/Intl Traveler<30days: No Traveled to known affect area: No History of Present Illness HPI 27-year-old male who presents to emergency room with complaints of priapism. He reports that he has history of priapisms daily, reports that he normally wakes up with priapism which usually resolves after taking pseudoephedrine. Patient reports that he woke up this morning around 7:30AM with a priapism, he did take 1 tab of pseudoephedrine with mild relief of symptoms. Patient reports increased pain and swelling to the left side of his penis. He does follow up with Dr. Gonzalez in the office for his priapisms and reports that he will ultimately follow up with [facility] for this as Dr. Gonzalez is unsure why he has daily recurrence of this. PFSH Past Medical History Arthritis: No Asthma: No Autoimmune Disease: Yes (HIV) Anxiety: Yes Heart Rhythm Problems: No Cancer: No Cardiovascular Problems: No High Cholesterol: No Chest Pain: No Congestive Heart Failure: No COPD: No Cerebrovascular Accident: No Diabetes: No Diminished Hearing: No Endocrine: No Gastrointestinal Disorders: Yes GERD: No Genitourinary: Yes (PRIAPISM) Headaches: No Hepatitis: No Hiatal Hernia: No Hypertension: No Immune Disorder: Yes (HIV) Implanted Vascular Access Dvce: No Kidney Stones: Yes Medical other: Yes Musculoskeletal: No Neurologic: No Psychiatric: No Reproductive: No Respiratory: No Immunizations Current: Yes Migraines: No Renal Failure: No Seizures: No Sleep Apnea: No Thyroid Disease: No Ulcer: No Tetanus Vaccination: Unknown Influenza Vaccination: Yes Past Surgical History Abdominal Surgery: No AICD: No Arteriovenous Shunt: No Cardiac Surgery: No Ear Surgery: No Endocrine Surgery: No Eye Surgery: No Genitourinary Surgery: Yes (HYPOSPADIA/ KIDNEY STONE REMOVED) Gynecologic Surgery: No Insulin Pump: No Joint Replacement: No Neurologic Surgery: No Oral Surgery: No Pacemaker: No Thoracic Surgery: No Other Surgery: Yes Social History Alcohol Use: Yes (OCCASIONALLY) Tobacco Use: No Substance Use: No Allergies-Medications (Allergen,Severity, Reaction): Coded Allergies: No Known Allergies (Verified Adverse Reaction, Unknown, 10/02/17) Reported Meds & Prescriptions Reported Meds & Active Scripts Active Reported [triumeq] 600-300 mg 1 Tab PO HS suunggyc-wtpdxrjvtuob-luowfzhgei 600-50-300 mg Sudafed (Pseudoephedrine HCl) 30 Mg Tablet 1 Tab PO DIRECTED Sudafed (Pseudoephedrine HCl) 30 Mg Tablet Triumeq (Pmpnxjdb-Cxbzyqdzewpl-Kkrwdeiciz) 600-50-300 Mg Tab 1 Tab PO HS Hazardous agent; use appropriate precautions for handling & disposal. Review of Systems General / Constitutional: No: Fever Eyes: No: Visual changes HENT: No: Headaches Cardiovascular: No: Chest Pain or Discomfort Respiratory: No: Shortness of Breath Gastrointestinal: No: Abdominal Pain Genitourinary: Positive: Other (priapism), No: Dysuria Musculoskeletal: No: Pain Skin: No Rash Neurologic: No: Weakness Psychiatric: No: Depression Endocrine: No: Polydipsia Hematologic/Lymphatic: No: Easy Bruising Physical Exam Narrative GENERAL: Mild distress SKIN: Focused skin assessment warm/dry. HEAD: Atraumatic. Normocephalic. EYES: Pupils equal and round. No scleral icterus. No injection or drainage. ENT: No nasal bleeding or discharge. Mucous membranes pink and moist. NECK: Trachea midline. No JVD. CARDIOVASCULAR: Regular rate and rhythm. No murmur appreciated. RESPIRATORY: No accessory muscle use. Clear to auscultation. Breath sounds equal bilaterally. GASTROINTESTINAL: Abdomen soft, non-tender, nondistended. Hepatic and splenic margins not palpable. : patient with priapism with increased fullness to his left sided corpus cavernosum MUSCULOSKELETAL: No obvious deformities. No clubbing. No cyanosis. No edema. NEUROLOGICAL: Awake and alert. No obvious cranial nerve deficits. Motor grossly within normal limits. Normal speech. PSYCHIATRIC: Appropriate mood and affect; insight and judgment normal. Data Data Last Documented VS Vital Signs Date Time Temp Pulse Resp B/P (MAP) Pulse Ox O2 Delivery O2 Flow Rate FiO2 10/02/17 12:24 98.8 92 16 174/109 (130) 98 Orders Orders Pseudoephedrine (Sudafed) (10/02/17 13:45) Phenyleph/Ns 1000 Mcg/10ml Syr (Neosynep (10/02/17 13:45) Lidocaine 1% Inj (50 Ml) (Xylocaine 1% I (10/02/17 13:45) Pseudoephedrine (Sudafed) (10/02/17 14:00) [facility] Medical Decision Making Medical Screen Exam Complete: Yes Emergency Medical Condition: Yes Medical Record Reviewed: Yes Interpretation(s) Vital Signs Date Time Temp Pulse Resp B/P (MAP) Pulse Ox O2 Delivery O2 Flow Rate FiO2 10/02/17 12:24 98.8 92 16 174/109 (130) 98 Differential Diagnosis Priaprism Narrative Course Patient reports that he woke up with a priapism this morning, he did take pseudoephedrine around 730 AM this morning, reports minimal relief of symptoms. Patient reports that while in the emergency room waiting room, he did notice that he had slight relief of his priapism. 60 mg of oral pseudoephedrine was ordered. Given the patient had over 7 hours of symptoms prior to being seen by myself, a penile block was performed and an 18-gauge he always used to drain left sided corpus cavernosum. Patient had relief of symptoms after drainage of his corpus cavernosum Patient will follow-up with Dr. Gonzalez, his urologist in the office as well as the [facility] Patient with complete resolution of priapism at this time. He reports that he has an appointment with the [facility] on October 14, 2017 for further workup of his priapism. he will return to ER as needed. patient thankful for care. Procedures Procedure Narrative Penal block: Penal block was performed by using 10 mL of 1% lidocaine without epinephrine. After penal block was performed, Betadine was used to cleanse left side of corpus cavernosus, an 18-gauge needle was introduced into the left side is corpus cavernosus, a significant amount of blood was drained from the area, patient had resolution of priapism after blood was drained. Patient tolerated procedure well Diagnosis Primary Impression: Priapism Referrals: Rakesh Gonzalez MD Patient Instructions: General Instructions Additional Instructions: Please follow up with your urologist, Dr. Gonzalez as soon as possible Return to ER as needed or if symptoms return Disposition: 01 DISCHARGE HOME Condition: Stable Yvette Chapman DO Oct 02, 2017 14:11
== END 2017-10-02 15:55 | disposition home or self-care (01) ==
LOC: NEPD 12:21
DX: N48.30 Priapism, unspecified (principal); Z21 Asymptomatic human immunodeficiency virus [HIV] infection status
CPT/HCPCS: 54220

== ENCOUNTER 2017-10-06 11:40 | Emergency (ER) | payer OTHER ==
[~2017-10-06 11:40] MED LIST changes: +PSEU30TA82 PO; +triumeq PO
[2017-10-06 11:41] VITALS: BP 157/93; PULSE 84; RESP 18; TEMP 98.4; O2SAT 95
[2017-10-06] MEDS ORDERED: PHENYLEPHRINE INJ 0.5 MG, SODIUM CHLORIDE 0.9% INJ 0.95 ML in SYRINGE/BAG 1 EA I-CAVITARY ONE ×4 (12:00)
--- NOTE | 2017-10-06 12:04 | PD ---
HPI Chief Complaint: Complaint Time Seen by Provider: 11:49 Travel History International Travel<30 days: No Contact w/Intl Traveler<30days: No Traveled to known affect area: No History of Present Illness HPI The patient is a 27-year-old male who presents to the emergency department for priapism. The patient has a history of HIV and is currently on antiviral therapy. The patient states he awakens every morning with a priapism. The patient will take Sudafed and the priapism will usually self resolved. However, occasionally without difficulty getting in the priapism to resolve with medications alone and will have to be evaluated in the emergency department for injection or drainage. The patient states he had an injection or drainage several days ago with good results. He does note some bruising to the base of the penis secondary to the drainage. He is followed by his urologist, Dr. Gonzalez, for his erections. Patient denies any cocaine use. Symptoms are moderate, recurrent, and alleviated in the past with medications and drainage. PFSH Past Medical History Arthritis: No Asthma: No Autoimmune Disease: Yes (HIV) Anxiety: Yes Heart Rhythm Problems: No Cancer: No Cardiovascular Problems: No High Cholesterol: No Chest Pain: No Congestive Heart Failure: No COPD: No Cerebrovascular Accident: No Diabetes: No Diminished Hearing: No Endocrine: No Gastrointestinal Disorders: Yes GERD: No Genitourinary: Yes (PRIAPISM) Headaches: No Hepatitis: No Hiatal Hernia: No Hypertension: No Immune Disorder: Yes (HIV) Implanted Vascular Access Dvce: No Kidney Stones: Yes Musculoskeletal: No Neurologic: No Psychiatric: No Reproductive: No Respiratory: No Immunizations Current: Yes Migraines: No Renal Failure: No Seizures: No Sleep Apnea: No Thyroid Disease: No Ulcer: No Past Surgical History Abdominal Surgery: No AICD: No Arteriovenous Shunt: No Cardiac Surgery: No Ear Surgery: No Endocrine Surgery: No Eye Surgery: No Genitourinary Surgery: Yes (HYPOSPADIA/ KIDNEY STONE REMOVED) Gynecologic Surgery: No Insulin Pump: No Joint Replacement: No Neurologic Surgery: No Oral Surgery: No Pacemaker: No Thoracic Surgery: No Other Surgery: Yes Social History Alcohol Use: Yes (OCCASIONALLY) Tobacco Use: No Substance Use: No Allergies-Medications (Allergen,Severity, Reaction): Coded Allergies: No Known Allergies (Verified Adverse Reaction, Unknown, 10/06/17) Reported Meds & Prescriptions Reported Meds & Active Scripts Active Reported [triumeq] 600-300 mg 1 Tab PO HS rnnrollq-xppfvfbfmnen-bvrasuoykn 600-50-300 mg Sudafed (Pseudoephedrine HCl) 30 Mg Tablet Triumeq (Vehgsfsb-Vwwhsufovxha-Rayzxvziud) 600-50-300 Mg Tab 1 Tab PO HS Hazardous agent; use appropriate precautions for handling & disposal. Review of Systems Except as stated in HPI: all other systems reviewed are Neg General / Constitutional: No: Fever Cardiovascular: No: Chest Pain or Discomfort Respiratory: No: Shortness of Breath Gastrointestinal: No: Nausea, Vomiting Genitourinary: Positive: Other (as noted in the history of present illness) Physical Exam Narrative GENERAL: Awake, alert, 27-year-old male who appears his stated age is in no acute respiratory distress. SKIN: Focused skin assessment warm/dry. HEAD: Atraumatic. Normocephalic. EYES: No injection or drainage. ENT: No nasal bleeding or discharge. Mucous membranes pink and moist. NECK: Trachea midline. No JVD. CARDIOVASCULAR: Regular rate and rhythm. No murmur appreciated. RESPIRATORY: No accessory muscle use. Clear to auscultation. Breath sounds equal bilaterally. GASTROINTESTINAL: Abdomen soft, non-tender, nondistended. Genitourinary: The patient has a priapism, there is ecchymosis at the one third base of the penis from previous injection. MUSCULOSKELETAL: No obvious deformities. No clubbing. No cyanosis. No edema. NEUROLOGICAL: Awake and alert. No obvious cranial nerve deficits. Motor grossly within normal limits. Normal speech. PSYCHIATRIC: Appropriate mood and affect; insight and judgment normal. Data Data Last Documented VS Vital Signs Date Time Temp Pulse Resp B/P (MAP) Pulse Ox O2 Delivery O2 Flow Rate FiO2 10/06/17 12:28 66 123/72 10/06/17 11:41 98.4 18 95 Orders Orders Phenylephrine Inj (Neosynephrine Inj)... (10/06/17 12:00) Phenylephrine Inj (Neosynephrine Inj)... (10/06/17 12:00) [facility] Medical Decision Making Medical Screen Exam Complete: Yes Emergency Medical Condition: Yes Medical Record Reviewed: Yes Differential Diagnosis Differential diagnosis includes priapism, cocaine use, medication side effect. Narrative Course The patient has a history of recurrent priapism's with previous drainage and injection. The patient took Sudafed earlier today without alleviation of his symptoms. Therefore, phenylephrine was ordered from pharmacy to be injected intracavernous and subsequent observation in the emergency department. 250 mics of phenylephrine were injected at the 3:00 and 9 o'clock position on the proximal one third of the penis respectively. The patient was then monitored in the emergency department. The patient was reevaluated at 1 PM, the priapism had resolved. The patient will be discharged home. He is advised to return if symptoms worsen or progress. Diagnosis Primary Impression: Priapism Patient Instructions: General Instructions Additional Instructions: Follow-up with your urologist. Return if symptoms worsen or progress. Disposition: 01 DISCHARGE HOME Condition: Stable Uriel Santa MD Oct 06, 2017 12:04
[2017-10-06 12:28] VITALS: BP 123/72; PULSE 66
[2017-10-20] MEDS ORDERED: TERB5 PO (12:44)
== END 2017-10-06 13:31 | disposition home or self-care (01) ==
LOC: NEPE 11:40
DX: N48.30 Priapism, unspecified (principal); Z21 Asymptomatic human immunodeficiency virus [HIV] infection status
CPT/HCPCS: 54235; 99284; J2370

== ENCOUNTER 2017-10-08 08:28 | Emergency (ER) | payer OTHER ==
[2017-10-08 08:31] VITALS: BP 141/82; PULSE 85; RESP 18; TEMP 98; O2SAT 97
--- NOTE | 2017-10-08 09:38 | PD ---
HPI Chief Complaint: Edema Time Seen by Provider: 09:23 Travel History International Travel<30 days: No Contact w/Intl Traveler<30days: No Traveled to known affect area: No History of Present Illness HPI This is a 27-year-old male history of HIV, daily morning. Priapism, presents for evaluation of the same. He woke up this morning with pre-prism, unrelieved with his usual Sudafed. He reports that it has been getting worse recently and he has been referred to a urologist at the [facility] but he does not have an appointment until October. During his wait he reports that the previous past improved some. He denies any cocaine use, abdominal pain. Most recently the patient was seen here in October 06 and he had phenylephrine injection with improvement in his priapism. He has no other complaints at this time. PFSH Past Medical History Arthritis: No Asthma: No Autoimmune Disease: Yes (HIV) Anxiety: Yes Heart Rhythm Problems: No Cancer: No Cardiovascular Problems: No High Cholesterol: No Chest Pain: No Congestive Heart Failure: No COPD: No Cerebrovascular Accident: No Diabetes: No Diminished Hearing: No Endocrine: No Gastrointestinal Disorders: Yes GERD: No Genitourinary: Yes (PRIAPISM) Headaches: No Hepatitis: No Hiatal Hernia: No Hypertension: No Immune Disorder: Yes (HIV) Implanted Vascular Access Dvce: No Kidney Stones: Yes Medical other: Yes Musculoskeletal: No Neurologic: No Psychiatric: No Reproductive: No Respiratory: No Immunizations Current: Yes Migraines: No Renal Failure: No Seizures: No Sleep Apnea: No Thyroid Disease: No Ulcer: No Past Surgical History Abdominal Surgery: No AICD: No Arteriovenous Shunt: No Cardiac Surgery: No Ear Surgery: No Endocrine Surgery: No Eye Surgery: No Genitourinary Surgery: Yes (HYPOSPADIA/ KIDNEY STONE REMOVED) Gynecologic Surgery: No Insulin Pump: No Joint Replacement: No Neurologic Surgery: No Oral Surgery: No Pacemaker: No Thoracic Surgery: No Other Surgery: Yes Social History Alcohol Use: Yes (OCCASIONALLY) Tobacco Use: No Substance Use: No Allergies-Medications (Allergen,Severity, Reaction): Coded Allergies: No Known Allergies (Verified Adverse Reaction, Unknown, 10/08/17) Reported Meds & Prescriptions Reported Meds & Active Scripts Active Reported Sudafed (Pseudoephedrine HCl) 30 Mg Tablet Triumeq (Sxsvzjps-Nkbaenvreawc-Xgxiuepvdf) 600-50-300 Mg Tab 1 Tab PO HS Hazardous agent; use appropriate precautions for handling & disposal. Review of Systems Except as stated in HPI: all other systems reviewed are Neg Physical Exam Narrative GENERAL: Well-developed well-nourished male in no acute distress SKIN: Warm and dry. HEAD: Atraumatic. Normocephalic. EYES: Pupils equal and round. No scleral icterus. No injection or drainage. ENT: No nasal bleeding or discharge. Mucous membranes pink and moist. NECK: Trachea midline. No JVD. CARDIOVASCULAR: Regular rate and rhythm. No murmur appreciated. RESPIRATORY: No accessory muscle use. Clear to auscultation. Breath sounds equal bilaterally. GASTROINTESTINAL: Abdomen soft, non-tender, nondistended. Hepatic and splenic margins not palpable. : Mild priapism noted. There is some ecchymosis at the base of the penile shaft. MUSCULOSKELETAL: No obvious deformities. No clubbing. No cyanosis. No edema. NEUROLOGICAL: Awake and alert. No obvious cranial nerve deficits. Motor grossly within normal limits. Normal speech. Data Data Last Documented VS Vital Signs Date Time Temp Pulse Resp B/P (MAP) Pulse Ox O2 Delivery O2 Flow Rate FiO2 10/08/17 09:22 Room Air 10/08/17 08:31 98.0 85 18 141/82 (101) 97 Orders Orders Ed Discharge Order (10/08/17 10:12) [facility] Medical Decision Making Medical Screen Exam Complete: Yes Emergency Medical Condition: Yes Medical Record Reviewed: Yes Differential Diagnosis Priapism, medication side effect, vasospasm Narrative Course 27-year-old male with long-standing history of priapism presents for evaluation of the same. His symptoms have spontaneously improved prior to examination and he would prefer to wait to see if symptoms resolve prior to any sort of intervention which seems reasonable. 1015: Upon reexamination the patient's symptoms have resolved and he is comfortable going home, outpatient follow-up at the [facility] as scheduled. Diagnosis Primary Impression: Priapism Additional Instructions: Follow-up with urology as scheduled. Return for any emergent medical conditions. Med/Other Pt SpecificInfo: No Change to Meds Disposition: 01 DISCHARGE HOME Condition: Stable Vinay Rutledge Oct 08, 2017 09:38
[2017-10-20] MEDS ORDERED: TERB5 PO (12:44)
== END 2017-10-08 10:42 | disposition home or self-care (01) ==
LOC: NEPD 08:28
DX: N48.30 Priapism, unspecified (principal); Z21 Asymptomatic human immunodeficiency virus [HIV] infection status
CPT/HCPCS: 99281

== ENCOUNTER 2017-10-15 11:43 | Emergency (ER) | payer OTHER ==
[~2017-10-15] VITALS: Ht 167.6 cm; Wt 88.0 kg
[~2017-10-15 11:43] MED LIST changes: -PSEU30TA82 PO; -triumeq PO
[2017-10-15 11:45] VITALS: BP 205/126; PULSE 118; RESP 20; TEMP 98.7; O2SAT 99
--- NOTE | 2017-10-15 11:55 | PD ---
HPI Chief Complaint: Complaint Time Seen by Provider: 11:52 Travel History International Travel<30 days: No Contact w/Intl Traveler<30days: No Traveled to known affect area: No History of Present Illness HPI 27-year-old male presents with PMH of HIV, daily morning priapism presents to the ED for evaluation of 5+ hours history of tense, painful erection since ~ 7AM.. Pain rated 10/10, constant. No alleviating or exacerbating factors. He states that he treated at home with Sudafed this morning with no improvement of his symptoms. He denies cocaine use, abdominal pain, nausea, vomiting. He is followed by Dr. Marie, urology, and states that he has an upcoming appointment with a specialist in [place]. He endorses compliance with his HIV medications. PFSH Past Medical History Arthritis: No Asthma: No Autoimmune Disease: Yes (HIV) Anxiety: Yes Heart Rhythm Problems: No Cancer: No Cardiovascular Problems: No High Cholesterol: No Chest Pain: No Congestive Heart Failure: No COPD: No Cerebrovascular Accident: No Diabetes: No Diminished Hearing: No Endocrine: No Gastrointestinal Disorders: Yes GERD: No Genitourinary: Yes (PRIAPISM) Headaches: No Hepatitis: No Hiatal Hernia: No Hypertension: No Immune Disorder: Yes (HIV) Implanted Vascular Access Dvce: No Kidney Stones: Yes Musculoskeletal: No Neurologic: No Psychiatric: No Reproductive: No Respiratory: No Immunizations Current: Yes Migraines: No Renal Failure: No Seizures: No Sleep Apnea: No Thyroid Disease: No Ulcer: No Past Surgical History Abdominal Surgery: No AICD: No Arteriovenous Shunt: No Cardiac Surgery: No Ear Surgery: No Endocrine Surgery: No Eye Surgery: No Genitourinary Surgery: Yes (HYPOSPADIA/ KIDNEY STONE REMOVED) Gynecologic Surgery: No Insulin Pump: No Joint Replacement: No Neurologic Surgery: No Oral Surgery: No Pacemaker: No Thoracic Surgery: No Other Surgery: Yes Social History Alcohol Use: Yes (OCCASIONALLY) Tobacco Use: No Substance Use: No Allergies-Medications (Allergen,Severity, Reaction): Coded Allergies: No Known Allergies (Verified Adverse Reaction, Unknown, 10/15/17) Reported Meds & Prescriptions Reported Meds & Active Scripts Active Reported Sudafed (Pseudoephedrine HCl) 30 Mg Tablet Triumeq (Egsspsbh-Vpzzapousbjw-Aidbvbtlsv) 600-50-300 Mg Tab 1 Tab PO HS Hazardous agent; use appropriate precautions for handling & disposal. Review of Systems Except as stated in HPI: all other systems reviewed are Neg Physical Exam Narrative GENERAL: Well-nourished, well-developed anxious, uncomfortable-appearing white male in no acute distress. SKIN: Focused skin assessment warm/dry. HEAD: Normocephalic. EYES: No scleral icterus. No injection or drainage. NECK: Supple, trachea midline. No JVD or lymphadenopathy. CARDIOVASCULAR: Regular rate and rhythm without murmurs, gallops, or rubs. RESPIRATORY: Breath sounds equal bilaterally. No accessory muscle use. GASTROINTESTINAL: Abdomen soft, non-tender, nondistended. GENITOURINARY: Circumcised. Testes descended bilaterally without evidence of rotation. No lesions or erythema. No urethral discharge. Priapism. Hypospadias. MUSCULOSKELETAL: No cyanosis, or edema. BACK: Nontender without obvious deformity. No CVA tenderness. Data Data Last Documented VS Vital Signs Date Time Temp Pulse Resp B/P (MAP) Pulse Ox O2 Delivery O2 Flow Rate FiO2 10/15/17 11:45 98.7 118 20 205/126 (152) 99 Room Air Orders Orders Phenylephrine Inj (Neosynephrine Inj)... (10/15/17 12:00) [facility] Medical Decision Making Medical Screen Exam Complete: Yes Emergency Medical Condition: Yes Differential Diagnosis priapism versus vasospasm versus Narrative Course 27-year-old male with history of priapism presents to the ED for evaluation of 5 + hour history of tense erection. On exam he does have priapism. 2.5 g of phenylephrine were injected into the corpus callosum at the 3 and 9 o'clock position in the proximal third of the penis. Patient was reevaluated approximately 30 minutes after injection. Priapism has resolved, penis is flaccid. He is instructed to follow-up with Dr. Gonzalez and the urologic specialist as planned. He is provided a work note. He is stable and discharged home. Diagnosis Primary Impression: Priapism Referrals: Rakesh Gonzalez MD Urologist Patient Instructions: General Instructions, Priapism (ED) Departure Forms: Tests/Procedures, Work Release Enter return to work date: Oct 17, 2017 Additional Instructions: Rest, hydrate. Take Sudafed daily as prescribed. Follow-up with the urologic specialist as planned. Return to the ED for any urgent or emergent medical condition. Disposition: 01 DISCHARGE HOME Condition: Stable Brandy Mcclendon Oct 15, 2017 11:55
[2017-10-15] MEDS ORDERED: PHENYLEPHRINE INJ 0.5 MG, SODIUM CHLORIDE 0.9% INJ 0.95 ML in SYRINGE/BAG 1 EA I-CAVITARY ONE ×2 (12:00)
[2017-10-15 13:17] VITALS: BP 155/93; PULSE 84; RESP 18; O2SAT 99
--- NOTE | 2017-10-15 13:17 | PD ---
Physical Exam Date Seen by Provider: Oct 15, 2017 Time Seen by Provider: 12:30 Narrative I, Dr. Brandon, have reviewed the advance practice practitioner's documentation and am in agreement, met with the patient face to face, made the diagnosis, and the medical decision making was done by me. *My assessment and Findings: Patient seen and evaluated with PA, has been here several times for priapism, here with priapism. He had taken his own pseudoephedrine at 7 AM, not improving. Please see PA note for further details. Considering his ongoing history, penile injection was done with phenylephrine. After a few minutes, there was good response with resolution of her priapism. At this point, patient is a well-known patient of Dr. Marie, plan would be to release the patient with follow-up to Dr. Marie. Return for any worsening in symptoms as needed. The plan was discussed with him he states understanding. Data Data Last Documented VS Vital Signs Date Time Temp Pulse Resp B/P (MAP) Pulse Ox O2 Delivery O2 Flow Rate FiO2 10/15/17 11:45 98.7 118 20 205/126 (152) 99 Room Air Orders Orders Phenylephrine Inj (Neosynephrine Inj)... (10/15/17 12:00) MDM Medical Record Reviewed: Yes Supervised Visit with IVAN: Yes Diagnosis Primary Impression: Priapism Referrals: Urologist Patient Instructions: General Instructions, Priapism (ED) Additional Instruction: Rest, hydrate. Take Sudafed daily as prescribed. Follow-up with the urologic specialist as planned. Return to the ED for any urgent or emergent medical condition. Disposition: 01 DISCHARGE HOME Condition: Stable Sue Brandon MD Oct 15, 2017 13:17
[2017-10-20] MEDS ORDERED: TERB5 PO (12:44)
== END 2017-10-15 13:20 | disposition home or self-care (01) ==
LOC: NEPC 11:43
DX: N48.30 Priapism, unspecified (principal)
CPT/HCPCS: 54235; 99284; J2370

== ENCOUNTER 2017-10-18 09:20 | Emergency (ER) | payer OTHER ==
[~2017-10-18] VITALS: Ht 167.6 cm; Wt 90.0 kg
[2017-10-18 09:21] VITALS: BP 144/90; PULSE 82; RESP 16; TEMP 98.1; O2SAT 100
--- NOTE | 2017-10-18 09:43 | PD ---
HPI Chief Complaint: Complaint Time Seen by Provider: 09:28 Travel History International Travel<30 days: No Contact w/Intl Traveler<30days: No Traveled to known affect area: No History of Present Illness HPI Patient is a 27-year-old male who presents to emergency room for evaluation of priapism. Patient reports that he woke up this morning with a priapism, he did take his dose of pseudoephedrine this morning with no relief of symptoms. Patient does follow-up with Dr. Gonzalez in the office as he has frequent and sometimes daily episodes of priapism. Reports that sometimes taking pseudoephedrine helps with the symptoms, pseudoephedrine does not help, he has to come to the emergency room for drainage PFSH Past Medical History Arthritis: No Asthma: No Autoimmune Disease: Yes (HIV) Anxiety: Yes Heart Rhythm Problems: No Cancer: No Cardiovascular Problems: No High Cholesterol: No Chest Pain: No Congestive Heart Failure: No COPD: No Cerebrovascular Accident: No Diabetes: No Diminished Hearing: No Endocrine: No Gastrointestinal Disorders: Yes GERD: No Genitourinary: Yes (PRIAPISM) Headaches: No Hepatitis: No Hiatal Hernia: No Hypertension: No Immune Disorder: Yes (HIV) Implanted Vascular Access Dvce: No Kidney Stones: Yes Musculoskeletal: No Neurologic: No Psychiatric: No Reproductive: No Respiratory: No Immunizations Current: Yes Migraines: No Renal Failure: No Seizures: No Sleep Apnea: No Thyroid Disease: No Ulcer: No Past Surgical History Abdominal Surgery: No AICD: No Arteriovenous Shunt: No Cardiac Surgery: No Ear Surgery: No Endocrine Surgery: No Eye Surgery: No Genitourinary Surgery: Yes (HYPOSPADIA/ KIDNEY STONE REMOVED) Gynecologic Surgery: No Insulin Pump: No Joint Replacement: No Neurologic Surgery: No Oral Surgery: No Pacemaker: No Thoracic Surgery: No Other Surgery: Yes Social History Alcohol Use: Yes (OCCASIONALLY) Tobacco Use: No Substance Use: No Allergies-Medications (Allergen,Severity, Reaction): Coded Allergies: No Known Allergies (Verified Adverse Reaction, Unknown, 10/18/17) Reported Meds & Prescriptions Reported Meds & Active Scripts Active Reported Sudafed (Pseudoephedrine HCl) 30 Mg Tablet Triumeq (Zpnfskuw-Jkjupluxqmrt-Zhmpdcyiwe) 600-50-300 Mg Tab 1 Tab PO HS Hazardous agent; use appropriate precautions for handling & disposal. Review of Systems General / Constitutional: No: Fever Eyes: No: Visual changes HENT: No: Headaches Cardiovascular: No: Chest Pain or Discomfort Respiratory: No: Shortness of Breath Gastrointestinal: No: Abdominal Pain Genitourinary: Positive: Other (priapism), No: Dysuria Musculoskeletal: No: Pain Skin: No Rash Neurologic: No: Weakness Psychiatric: No: Depression Endocrine: No: Polydipsia Hematologic/Lymphatic: No: Easy Bruising Physical Exam Narrative GENERAL: [-] SKIN: Focused skin assessment warm/dry. HEAD: Atraumatic. Normocephalic. EYES: Pupils equal and round. No scleral icterus. No injection or drainage. ENT: No nasal bleeding or discharge. Mucous membranes pink and moist. NECK: Trachea midline. No JVD. CARDIOVASCULAR: Regular rate and rhythm. No murmur appreciated. RESPIRATORY: No accessory muscle use. Clear to auscultation. Breath sounds equal bilaterally. GASTROINTESTINAL: Abdomen soft, non-tender, nondistended. Hepatic and splenic margins not palpable. : patient with priapism on exam MUSCULOSKELETAL: No obvious deformities. No clubbing. No cyanosis. No edema. NEUROLOGICAL: Awake and alert. No obvious cranial nerve deficits. Motor grossly within normal limits. Normal speech. PSYCHIATRIC: Appropriate mood and affect; insight and judgment normal. Data Data Last Documented VS Vital Signs Date Time Temp Pulse Resp B/P (MAP) Pulse Ox O2 Delivery O2 Flow Rate FiO2 10/18/17 11:54 80 140/89 10/18/17 09:21 98.1 16 100 Orders Orders Phenylephrine Inj (Neosynephrine Inj)... (10/18/17 09:45) Lidocaine 1% Inj (50 Ml) (Xylocaine 1% I (10/18/17 09:45) Sodium Chlor 0.9% 1000 Ml Inj (Ns 1000 M (10/18/17 09:45) Sodium Chlor 0.9% 1000 Ml Inj (Ns 1000 M (10/18/17 09:45) Iv Access Insert/Monitor (10/18/17 09:43) MDM Medical Decision Making Medical Screen Exam Complete: Yes Emergency Medical Condition: Yes Medical Record Reviewed: Yes Interpretation(s) Vital Signs Date Time Temp Pulse Resp B/P (MAP) Pulse Ox O2 Delivery O2 Flow Rate FiO2 10/18/17 09:21 98.1 82 16 144/90 (108) 100 Differential Diagnosis Priapism Narrative Course 27-year-old male who presents to emergency room with complaints of priapism - reports that he woke up with the symptoms. During the course of the patients emergency department visit, the patients history, examination, and differential diagnosis were reviewed with the patient. The patient was placed on a groundwater monitoring technician with oximetry and frequent blood pressure monitoring. The patient had a 20-gauge IV access obtained and blood work sent for analysis. The patient was initially provided IV fluids as well as phenylephrine injection Patient with no resolution of priapism after phenylephrine was injected, obtain about was placed and an 18-gauge needle was placed to bilateral corpus cavernosus, a significant amount of blood was drained from his corpus cavernosus , patient had resolution of his priapism Patient follow up with his urologist and will return to the emergency room as needed. Procedures Procedure Narrative Priapism 10:22AM After area was cleaned and verbal sent was given, 100 g of phenylephrine was injected to left corpus cavernosum, 100 g of phenylephrine was injected into the right corpus cavernosum After informed consent was obtained by patient: A penile block was placed, after patient was properly anesthetized, 18 gauge needles or injected to bilateral corpus cavernosum, a significant amount of blood was removed from corpus cavernosum. Patient had resolution of priapism after this procedure. Diagnosis Primary Impression: Priapism Referrals: Rakesh Gonzalez MD Patient Instructions: General Instructions Additional Instructions: Please follow-up with your urologist as soon as possible Return to the emergency room as needed Disposition: 01 DISCHARGE HOME Condition: Stable Yvette Chapman DO Oct 18, 2017 09:43
[2017-10-18] MEDS ORDERED: LIDOCAINE HCL 1% 50 ML VIAL INFIL ONE (09:45)
[2017-10-18] MEDS ORDERED: PHENYLEPHRINE INJ 0.5 MG, SODIUM CHLORIDE 0.9% INJ 0.95 ML in SYRINGE/BAG 1 EA I-CAVITARY ONE ×2 (09:45)
[2017-10-18] MEDS ORDERED: SODIUM CHLOR 0.9% 1000 ML INJ 1,000 ML IV ONE ×2 (09:45)
[2017-10-18 11:54] VITALS: BP 140/89; PULSE 80
[2017-10-20] MEDS ORDERED: TERB5 PO (12:44)
== END 2017-10-18 13:52 | disposition home or self-care (01) ==
LOC: NEPD 09:20
DX: N48.30 Priapism, unspecified (principal); F41.9 Anxiety disorder, unspecified; Z87.442 Personal history of urinary calculi; Z21 Asymptomatic human immunodeficiency virus [HIV] infection status; Z79.899 Other long term (current) drug therapy
CPT/HCPCS: 54220; 96374; 99282; J2370

== ENCOUNTER 2017-10-19 16:18 | Emergency (ER) | payer OTHER ==
[~2017-10-19] VITALS: Ht 167.6 cm; Wt 90.0 kg
[2017-10-19 16:22] VITALS: BP 152/93; PULSE 108; RESP 18; TEMP 97.8; O2SAT 100
[2017-10-19] MEDS ORDERED: PHENYLEPH/NS 1000 MCG/10 ML SYR IV ONE ×2 (17:45)
--- NOTE | 2017-10-19 18:17 | PD ---
HPI Chief Complaint: Complaint Time Seen by Provider: 17:29 Travel History International Travel<30 days: No Contact w/Intl Traveler<30days: No Traveled to known affect area: No History of Present Illness HPI 27 yo male hx priapism, follows with dr diaz and is reportedly planning to follow at the [facility] due to often times daily priapism typically only treated by intracorporal phenylephrine injections or drainage. today patient woke up with priapism and worked before arriving [place] [facility]. constant moderate penile pain reported. pseuophed this am did not help. overall duration has been at least 10 hours. pt states previously duration has exceeded 15 hours. no discharge. no testicular pain. pt has hx HIV and reports strict compliance with antiretrovirals. PFSH Past Medical History Arthritis: No Asthma: No Autoimmune Disease: Yes (HIV) Anxiety: Yes Heart Rhythm Problems: No Cancer: No Cardiovascular Problems: No High Cholesterol: No Chest Pain: No Congestive Heart Failure: No COPD: No Cerebrovascular Accident: No Diabetes: No Diminished Hearing: No Endocrine: No Gastrointestinal Disorders: No GERD: No Genitourinary: Yes (PRIAPISM) Headaches: No Hepatitis: No Hiatal Hernia: No Heparin Induced Thrombocytopen: No Hypertension: No Immune Disorder: Yes (HIV) Implanted Vascular Access Dvce: No Kidney Stones: Yes Medical other: Yes Musculoskeletal: No Neurologic: No Psychiatric: No Reproductive: No Respiratory: No Immunizations Current: Yes Migraines: No Renal Failure: No Seizures: No Sleep Apnea: No Thyroid Disease: No Ulcer: No Past Surgical History Abdominal Surgery: No AICD: No Arteriovenous Shunt: No Cardiac Surgery: No Ear Surgery: No Endocrine Surgery: No Eye Surgery: No Genitourinary Surgery: Yes (HYPOSPADIA/ KIDNEY STONE REMOVED) Gynecologic Surgery: No Insulin Pump: No Joint Replacement: No Neurologic Surgery: No Oral Surgery: No Pacemaker: No Thoracic Surgery: No Other Surgery: No Social History Alcohol Use: Yes (OCCASIONALLY) Tobacco Use: No Substance Use: No Allergies-Medications (Allergen,Severity, Reaction): Coded Allergies: No Known Allergies (Verified Adverse Reaction, Unknown, 10/18/17) Reported Meds & Prescriptions Reported Meds & Active Scripts Active Reported Sudafed (Pseudoephedrine HCl) 30 Mg Tablet Triumeq (Akbyxolx-Pktuulcgskbd-Sfskgmohfd) 600-50-300 Mg Tab 1 Tab PO HS Hazardous agent; use appropriate precautions for handling & disposal. Review of Systems Except as stated in HPI: all other systems reviewed are Neg General / Constitutional: No: Fever Cardiovascular: No: Chest Pain or Discomfort Respiratory: No: Shortness of Breath Gastrointestinal: No: Abdominal Pain Physical Exam Narrative GENERAL: 27 yo M, sitting on stretcher, watching tv : Priapism present. ecchymosis along the R lateral aspect of the proximal penis shaft. normal anatomy otherwise. SKIN: Warm and dry. HEAD: Atraumatic. Normocephalic. EYES: Pupils equal and round. No scleral icterus. No injection or drainage. NECK: Trachea midline. No JVD. CARDIOVASCULAR: Regular rate and rhythm. RESPIRATORY: No accessory muscle use. Clear to auscultation. Breath sounds equal bilaterally. GASTROINTESTINAL: Abdomen soft, non-tender, nondistended. Hepatic and splenic margins not palpable. MUSCULOSKELETAL: Extremities without clubbing, cyanosis, or edema. No obvious deformities. NEUROLOGICAL: Awake and alert. No obvious cranial nerve deficits. Motor grossly within normal limits. Five out of 5 muscle strength in the arms and legs. Normal speech. Data Data Last Documented VS Vital Signs Date Time Temp Pulse Resp B/P (MAP) Pulse Ox O2 Delivery O2 Flow Rate FiO2 10/19/17 18:53 10/19/17 16:22 97.8 108 18 100 Orders Orders Phenyleph/Ns 1000 Mcg/10ml Syr (Neosynep (10/19/17 17:45) Phenyleph/Ns 1000 Mcg/10ml Syr (Neosynep (10/19/17 17:45) Ed Discharge Order (10/19/17 18:30) [facility] Medical Decision Making Medical Screen Exam Complete: Yes Emergency Medical Condition: Yes Differential Diagnosis high flow priapism, low flow priapism, medication side effect Narrative Course of note, patient denies usage of phosphodiesterase inhibitors pt seen here just yesterday for same complaint with intracorporal drainage 1ml of phenylephrine (100uL) injection into the L corpora cavernosum resulted in immediate flaccidity pt urinated shortly thereafter pt states he plans to see dr diaz this week Procedures Procedure Narrative 1ml of phenylephrine injected into L corpora cavernosa (100uL phenylephrine) after sterilization resulted in complete resolution of priapism. patient tolerated procedure well. Diagnosis Primary Impression: Priapism Referrals: Rakesh Gonzalez MD call for appointment Med/Other Pt SpecificInfo: No Change to Meds Disposition: 01 DISCHARGE HOME Matty Duggan MD Oct 19, 2017 18:17
[2017-10-20] MEDS ORDERED: TERB5 PO (12:44)
== END 2017-10-19 18:55 | disposition home or self-care (01) ==
LOC: NEPD 16:18
DX: N48.30 Priapism, unspecified (principal)
CPT/HCPCS: 54235; 99283; J2370

== ENCOUNTER 2017-10-21 09:06 | Emergency (ER) | payer OTHER ==
[~2017-10-21] VITALS: Ht 167.6 cm; Wt 90.0 kg
[~2017-10-21 09:06] MED LIST changes: +TERB5 PO
[2017-10-21 09:09] VITALS: BP 141/86; PULSE 71; RESP 16; TEMP 98.6; O2SAT 98
[2017-10-21 09:30] VITALS: PULSE 80
[2017-10-21] MEDS ORDERED: PHENYLEPHRINE INJ 0.5 MG, SODIUM CHLORIDE 0.9% INJ 0.95 ML in SYRINGE/BAG 1 EA I-CAVITARY ONE ×2 (09:30)
[2017-10-21] MEDS ORDERED: LIDOCAINE HCL 1% 50 ML VIAL INFIL ONE (09:30)
--- NOTE | 2017-10-21 10:17 | PD ---
HPI Chief Complaint: Complaint Time Seen by Provider: 09:18 Travel History International Travel<30 days: No Contact w/Intl Traveler<30days: No Traveled to known affect area: No History of Present Illness HPI 27-year-old male, history of HIV and recurrent priapism of unclear etiology. Follows with urology. Here today with the same, symptoms started a couple hours ago. Multiple recent drainage procedures phenylephrine injections. Takes phenylephrine at home without significant relief. History Past Medical History Narrative Medical HIV, compliant with medications Recurrent priapism Social History Alcohol Use: Yes (OCCASIONALLY) Tobacco Use: No Allergies-Medications (Allergen,Severity, Reaction): Coded Allergies: No Known Allergies (Verified Adverse Reaction, Unknown, 10/18/17) Reported Meds & Prescriptions Reported Meds & Active Scripts Active Terbutaline Sulfate 5 Mg Tab 5 Mg PO TID Reported Sudafed (Pseudoephedrine HCl) 30 Mg Tablet Triumeq (Jmyhwcmz-Tajttjnrtdxw-Tyrfmtprda) 600-50-300 Mg Tab 1 Tab PO HS Hazardous agent; use appropriate precautions for handling & disposal. Review of Systems Except as stated in HPI: all other systems reviewed are Neg Physical Exam Narrative GENERAL: Well-appearing 27-year-old, no acute distress. SKIN: Warm and dry. CARDIOVASCULAR: Warm and well perfused. RESPIRATORY: Normal rate and effort. MUSCULOSKELETAL: No deformities. NEUROLOGICAL: Awake and alert. No gross deficits. : Normal external male genitalia, bruising about the base of the penis. Data Data Last Documented VS Vital Signs Date Time Temp Pulse Resp B/P (MAP) Pulse Ox O2 Delivery O2 Flow Rate FiO2 10/21/17 09:30 80 10/21/17 09:09 98.6 16 141/86 (104) 98 Room Air Orders Orders Phenylephrine Inj (Neosynephrine Inj)... (10/21/17 09:30) Lidocaine 1% Inj (50 Ml) (Xylocaine 1% I (10/21/17 09:30) Ed Discharge Order (10/21/17 10:40) MDM Medical Decision Making Medical Screen Exam Complete: Yes Emergency Medical Condition: Yes Differential Diagnosis Priapism, AV fistula, adverse effect to medication, other Narrative Course Medical decision making 27-year-old man from her priapism. Usually with good effect with phenylephrine injection. Given injury And also for neural for injection. We'll monitor resolution. 10:40 AM: Reassessment: Successful detumescence of priapism. Procedures Procedure Narrative Intracavernosal injection: Area Was prepped with alcohol. Right base of the penis was injected with 500 g of intracavernosal phenylephrine. Patient tolerated well. Diagnosis Primary Impression: Priapism Additional Instructions: Follow-up with urology specialist as planned. Return to the emergency department for any recurrent or worsening symptoms. Med/Other Pt SpecificInfo: No Change to Meds Disposition: 01 DISCHARGE HOME Condition: Stable Jeremy Francis MD Oct 21, 2017 10:17
== END 2017-10-21 10:48 | disposition home or self-care (01) ==
LOC: NEPD 09:06
DX: N48.30 Priapism, unspecified (principal); Z21 Asymptomatic human immunodeficiency virus [HIV] infection status
CPT/HCPCS: 54235; 99283; J2370

== ENCOUNTER 2017-10-25 12:56 | Emergency (ER) | payer OTHER, MEDICAID ==
[~2017-10-25] VITALS: Ht 167.6 cm; Wt 86.5 kg
[2017-10-25 12:59] VITALS: BP 188/102; PULSE 125; RESP 24; O2SAT 97
--- NOTE | 2017-10-25 13:13 | PD ---
HPI Chief Complaint: Complaint Time Seen by Provider: 13:10 Travel History International Travel<30 days: No Contact w/Intl Traveler<30days: No Traveled to known affect area: No History of Present Illness HPI Patient is a 27-year-old male presenting to emergency for evaluation of priapism. Patient states he woke up at 8 AM this morning with an erection that has lasted for the last 5 hours. Patient normally takes phenylephrine by mouth for this but this has not relieved his symptoms. Patient reports pain is a 10 out of 10, pain is throbbing in nature. No alleviating factors, pain is exacerbated with movement. Patient is HIV positive, he reports compliance with medications. PFSH Past Medical History Arthritis: No Asthma: No Autoimmune Disease: Yes (HIV) Anxiety: Yes Heart Rhythm Problems: No Cancer: No Cardiovascular Problems: No High Cholesterol: No Chest Pain: No Congestive Heart Failure: No COPD: No Cerebrovascular Accident: No Diabetes: No Diminished Hearing: No Endocrine: No Gastrointestinal Disorders: No GERD: No Genitourinary: Yes (PRIAPISM) Headaches: No Hepatitis: No Hiatal Hernia: No Heparin Induced Thrombocytopen: No Hypertension: No Immune Disorder: Yes (HIV) Implanted Vascular Access Dvce: No Kidney Stones: Yes Musculoskeletal: No Neurologic: No Psychiatric: No Reproductive: No Respiratory: No Immunizations Current: Yes Migraines: No Renal Failure: No Seizures: No Sleep Apnea: No Thyroid Disease: No Ulcer: No Past Surgical History Abdominal Surgery: No AICD: No Arteriovenous Shunt: No Cardiac Surgery: No Ear Surgery: No Endocrine Surgery: No Eye Surgery: No Genitourinary Surgery: Yes (HYPOSPADIA/ KIDNEY STONE REMOVED) Gynecologic Surgery: No Insulin Pump: No Joint Replacement: No Neurologic Surgery: No Oral Surgery: No Pacemaker: No Thoracic Surgery: No Other Surgery: No Social History Alcohol Use: Yes (OCCASIONALLY) Tobacco Use: No Substance Use: No Allergies-Medications (Allergen,Severity, Reaction): Coded Allergies: No Known Allergies (Verified Adverse Reaction, Unknown, 10/25/17) Reported Meds & Prescriptions Reported Meds & Active Scripts Active Terbutaline Sulfate 5 Mg Tab 5 Mg PO TID Reported Sudafed (Pseudoephedrine HCl) 30 Mg Tablet Triumeq (Zfpktauc-Lrtdhzcwbnbq-Ngchltbibq) 600-50-300 Mg Tab 1 Tab PO HS Hazardous agent; use appropriate precautions for handling & disposal. Review of Systems Except as stated in HPI: all other systems reviewed are Neg Genitourinary: Positive: Other (PRIAPISM) Physical Exam Narrative GENERAL: Well-developed, well-nourished, alert and uncomfortable appearing male. SKIN: Warm and dry. HEAD: Atraumatic. Normocephalic. EYES: Pupils equal and round. No scleral icterus. No injection or drainage. ENT: No nasal bleeding or discharge. Mucous membranes pink and moist. NECK: Trachea midline. No JVD. CARDIOVASCULAR: Regular rate and rhythm. RESPIRATORY: No accessory muscle use. Clear to auscultation. Breath sounds equal bilaterally. GASTROINTESTINAL: Abdomen soft, non-tender, nondistended. Hepatic and splenic margins not palpable. MUSCULOSKELETAL: Extremities without clubbing, cyanosis, or edema. No obvious deformities. GENITOURINARY: Circumcised. Testes descended bilaterally without evidence of rotation. No lesions or erythema. No urethral discharge. PRIAPISM NEUROLOGICAL: Awake and alert. No obvious cranial nerve deficits. Motor grossly within normal limits. Five out of 5 muscle strength in the arms and legs. Normal speech. PSYCHIATRIC: Appropriate mood and affect; insight and judgment normal. Data Data Last Documented VS Vital Signs Date Time Temp Pulse Resp B/P (MAP) Pulse Ox O2 Delivery O2 Flow Rate FiO2 10/25/17 12:59 125 24 188/102 (130) 97 Orders Orders Phenylephrine Inj (Neosynephrine Inj)... (10/25/17 13:15) Iv Access Insert/Monitor (10/25/17 13:08) Complete Blood Count With Diff (10/25/17 13:16) Morphine Inj (Morphine Inj) (10/25/17 13:30) Ondansetron Inj (Zofran Inj) (10/25/17 13:30) Ed Discharge Order (10/25/17 14:50) Labs Laboratory Tests Test 10/25/17 13:20 White Blood Count 5.2 TH/MM3 Red Blood Count 4.24 MIL/MM3 Hemoglobin 13.9 GM/DL Hematocrit 40.6 % Mean Corpuscular Volume 95.7 FL Mean Corpuscular Hemoglobin 32.7 PG Mean Corpuscular Hemoglobin Concent 34.1 % Red Cell Distribution Width 13.3 % Platelet Count 160 TH/MM3 Mean Platelet Volume 7.9 FL Neutrophils (%) (Auto) 72.5 % Lymphocytes (%) (Auto) 21.1 % Monocytes (%) (Auto) 5.6 % Eosinophils (%) (Auto) 0.5 % Basophils (%) (Auto) 0.3 % Neutrophils # (Auto) 3.7 TH/MM3 Lymphocytes # (Auto) 1.1 TH/MM3 Monocytes # (Auto) 0.3 TH/MM3 Eosinophils # (Auto) 0.0 TH/MM3 Basophils # (Auto) 0.0 TH/MM3 CBC Comment DIFF FINAL Differential Comment MDM Medical Decision Making Medical Screen Exam Complete: Yes Emergency Medical Condition: Yes Medical Record Reviewed: Yes Interpretation(s) Vital Signs Date Time Temp Pulse Resp B/P (MAP) Pulse Ox O2 Delivery O2 Flow Rate FiO2 10/25/17 12:59 125 24 188/102 (130) 97 Differential Diagnosis Priapism vs neurovascular compromise vs coagulopathy vs other Narrative Course Patient is a 27-year-old male that presented to emergency for evaluation of priapism. Patient woke up at 8 AM with the erection. Patient's vital signs are stable, will check CBC. Phenylephrine ordered. Patient was given morphine and Zofran for pain. Please see my attending physician's note for injection of phenylephrine. Patient tolerated well, priapism resolved. Patient was observed, had no further complaints. Patient will be discharged home, is advised to follow-up with his urologist. He has an appointment at [facility] for further evaluation. He was further encouraged return to emergency department for any new or worsening symptoms. Patient verbalized understanding of instructions. Patient is stable for discharge. Diagnosis Primary Impression: Priapism Referrals: Urologist 2 days Patient Instructions: General Instructions, Priapism (ED) Additional Instructions: Follow-up with your urologist Follow-up at [facility] as scheduled Continue home medications as previously prescribed Return to emergency department for any new or worsening symptoms Med/Other Pt SpecificInfo: No Change to Meds Disposition: 01 DISCHARGE HOME Condition: Stable Anabella Jaramillo Oct 25, 2017 13:13
[2017-10-25] MEDS ORDERED: PHENYLEPHRINE INJ 0.5 MG, SODIUM CHLORIDE 0.9% INJ 0.95 ML in SYRINGE/BAG 1 EA I-CAVITARY ONE ×2 (13:15)
[2017-10-25] MEDS ORDERED: MORPHINE SULFATE 4 MG/ML INJ IV PUSH ONE (13:30)
[2017-10-25] MEDS ORDERED: ONDANSETRON HCL 4 MG/2 ML VIAL IV PUSH ONE (13:30)
[2017-10-25 13:35] LABS: AUTOMATED NEUTROPHIL # 3.7 TH/MM3 (1.8-7.7); BASOPHIL % 0.3 % (0.0-2.0); EOSINOPHIL % 0.5 % (0.0-4.0); HEMATOCRIT 40.6 % (39.0-51.0); HEMO FLAGS DIFF FINAL; LYMPH % 21.1 % (9.0-44.0); LYMPHOCYTE # 1.1 TH/MM3 (1.0-4.8); MEAN CELL VOLUME 95.7 FL (80.0-100.0); MEAN CORPUSCULAR HEMOGLOBIN 32.7 PG (27.0-34.0); MEAN CORPUSCULAR HGB CONC 34.1 % (32.0-36.0); MONO % 5.6 % (0.0-8.0); NEUT % 72.5 % (16.0-70.0); PLATELET COUNT 160 TH/MM3 (150-450); RED BLOOD COUNT 4.24 MIL/MM3 (4.50-5.90); RED CELL DISTRIBUTION WIDTH 13.3 % (11.6-17.2); WHITE BLOOD COUNT 5.2 TH/MM3 (4.0-11.0)
[2017-10-25 14:00] VITALS: BP 135/65; PULSE 98; RESP 32; O2SAT 99
--- NOTE | 2017-10-25 14:32 | PD ---
Physical Exam Date Seen by Provider: Oct 25, 2017 Time Seen by Provider: 14:29 Narrative 27-year-old male came to the emergency room with recurrent priapism. This time it has been going on at least first 5 hours. Patient woke up with the priapism. Patient was in the emergency room one week ago when he had his penile drainage done for the persistent priapism. He has been taking phenylephrine at home but it has not been working. He has a urologist he sees. He was seen by my nurse practitioner and I'm supervising her. I had injected phenylephrine 1 mL 3 which made the priapism resolved. Please refer to my procedure note. Patient tolerated the procedure well. He'll be discharged home. Data Data Last Documented VS Orders Orders Phenylephrine Inj (Neosynephrine Inj)... (10/25/17 13:15) Iv Access Insert/Monitor (10/25/17 13:08) Complete Blood Count With Diff (10/25/17 13:16) Morphine Inj (Morphine Inj) (10/25/17 13:30) Ondansetron Inj (Zofran Inj) (10/25/17 13:30) Ed Discharge Order (10/25/17 14:50) Labs Laboratory Tests Test 10/25/17 13:20 White Blood Count 5.2 TH/MM3 Red Blood Count 4.24 MIL/MM3 Hemoglobin 13.9 GM/DL Hematocrit 40.6 % Mean Corpuscular Volume 95.7 FL Mean Corpuscular Hemoglobin 32.7 PG Mean Corpuscular Hemoglobin Concent 34.1 % Red Cell Distribution Width 13.3 % Platelet Count 160 TH/MM3 Mean Platelet Volume 7.9 FL Neutrophils (%) (Auto) 72.5 % Lymphocytes (%) (Auto) 21.1 % Monocytes (%) (Auto) 5.6 % Eosinophils (%) (Auto) 0.5 % Basophils (%) (Auto) 0.3 % Neutrophils # (Auto) 3.7 TH/MM3 Lymphocytes # (Auto) 1.1 TH/MM3 Monocytes # (Auto) 0.3 TH/MM3 Eosinophils # (Auto) 0.0 TH/MM3 Basophils # (Auto) 0.0 TH/MM3 CBC Comment DIFF FINAL Differential Comment MDM Supervised Visit with IVAN: Yes Procedures Procedure Narrative Penile phenylephrine injection: 500 g of phenylephrine was mixed with 9 mL of saline and the syringe was inverted couple times to mix the 2 solution together. The left side base of the penis was cleaned with ChloraPrep. One mL of this phenylephrine and normal saline mixture was injected every 2 minutes 3 into the penis. Soon the erected penis started to get flaccid at this point. The pain disappeared as per the patient. He was on the clinical interviewer the entire time and her current blood pressures were monitored and patient did good. Evan Johnson MD Oct 25, 2017 14:32
[2017-10-25 15:00] VITALS: BP 133/59; PULSE 95; RESP 18; O2SAT 98
[2017-10-25 16:00] VITALS: BP 124/56; PULSE 94; RESP 18; O2SAT 97
[2017-10-25 17:00] VITALS: BP 117/58; PULSE 84; RESP 16; O2SAT 98
== END 2017-10-25 17:33 | disposition home or self-care (01) ==
LOC: NEPE 12:56
DX: N48.30 Priapism, unspecified (principal); Z21 Asymptomatic human immunodeficiency virus [HIV] infection status
CPT/HCPCS: 85025; 96374; 96375; 99285; J2270; J2370; J2405

== ENCOUNTER 2017-11-16 10:48 | Emergency (ER) | payer OTHER, MEDICAID ==
[~2017-11-16] VITALS: Ht 167.6 cm; Wt 90.0 kg
[2017-11-16 10:52] VITALS: BP 145/99; PULSE 105; RESP 16; TEMP 98.5; O2SAT 99
[2017-11-16] MEDS ORDERED: MORPHINE SULFATE 4 MG/ML INJ IV PUSH ONE (11:15)
[2017-11-16] MEDS ORDERED: ONDANSETRON HCL 4 MG/2 ML VIAL IV PUSH ONE (11:15)
--- NOTE | 2017-11-16 11:25 | PD ---
HPI Chief Complaint: Complaint Time Seen by Provider: 10:59 Travel History International Travel<30 days: No Contact w/Intl Traveler<30days: No Traveled to known affect area: No History of Present Illness HPI 27-year-old male presents to the emergency Department with complaint of an ongoing erection 9 hours. 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 He is taking terbutaline for symptom management. He denies difficulty urinating, but says urination will get difficult if his erection does not go down. Denies fever, vomiting, abdominal pain. Rates pain 09/02. Describes it as a vice copy reader around his penis. He says he's been seen here many times before for priapism and they injected phenylephrine and if that doesn't work then it gets drained. He has not taken any medication for pain at home. Denies allergies. Primary care provider is Dr. Sainz. Has history of HIV and sees Dr. Luque. [facility] Past Medical History Arthritis: No Asthma: No Autoimmune Disease: Yes (HIV) Anxiety: Yes Heart Rhythm Problems: No Cancer: No Cardiovascular Problems: No High Cholesterol: No Chest Pain: No Congestive Heart Failure: No COPD: No Cerebrovascular Accident: No Diabetes: No Diminished Hearing: No Endocrine: No Gastrointestinal Disorders: No GERD: No Genitourinary: Yes (PRIAPISM) Headaches: No Hepatitis: No Hiatal Hernia: No Heparin Induced Thrombocytopen: No Hypertension: No Immune Disorder: Yes (HIV) Implanted Vascular Access Dvce: No Kidney Stones: Yes Musculoskeletal: No Neurologic: No Psychiatric: No Reproductive: No Respiratory: No Immunizations Current: Yes Migraines: No Renal Failure: No Seizures: No Sleep Apnea: No Thyroid Disease: No Ulcer: No Past Surgical History Abdominal Surgery: No AICD: No Arteriovenous Shunt: No Cardiac Surgery: No Ear Surgery: No Endocrine Surgery: No Eye Surgery: No Genitourinary Surgery: Yes (HYPOSPADIA/ KIDNEY STONE REMOVED) Gynecologic Surgery: No Insulin Pump: No Joint Replacement: No Neurologic Surgery: No Oral Surgery: No Pacemaker: No Thoracic Surgery: No Other Surgery: No Social History Alcohol Use: Yes (OCCASIONALLY) Tobacco Use: No Substance Use: No Allergies-Medications (Allergen,Severity, Reaction): Coded Allergies: No Known Allergies (Verified Adverse Reaction, Unknown, 11/16/17) Reported Meds & Prescriptions Reported Meds & Active Scripts Active Terbutaline Sulfate 5 Mg Tab 5 Mg PO TID Reported Sudafed (Pseudoephedrine HCl) 30 Mg Tablet Triumeq (Bdwkaowk-Hyulhclztpqy-Chuzphning) 600-50-300 Mg Tab 1 Tab PO HS Hazardous agent; use appropriate precautions for handling & disposal. Review of Systems Except as stated in HPI: all other systems reviewed are Neg Physical Exam Narrative GENERAL: Well-nourished, well-developed male patient, in no acute distress SKIN: Warm and dry. HEAD: Atraumatic. Normocephalic. EYES: Pupils equal and round. ENT: Mucosa pink and moist. NECK: Trachea midline. No lymphadenopathy. CARDIOVASCULAR: Regular rate. RESPIRATORY: No accessory muscle use. GASTROINTESTINAL: Abdomen soft and nondisteneded; with tenderness at the umbilicus on palpation. Hepatic and splenic margins not palpable. Bowel sounds are active 4 quadrants. GENITOURINARY: Exam done in the presence of a nurse. Circumcised. Penis erected. MUSCULOSKELETAL: No obvious deformities. No clubbing. No cyanosis. No edema. NEUROLOGICAL: Awake and alert. Oriented 3. No obvious cranial nerve deficits. Motor grossly within normal limits. Normal speech. Moves all extremities. 5/5 strength to all extremities. PSYCHIATRIC: Appropriate mood and affect; insight and judgment normal. Data Data Last Documented VS Vital Signs Date Time Temp Pulse Resp B/P (MAP) Pulse Ox O2 Delivery O2 Flow Rate FiO2 11/16/17 11:53 97 18 166/87 (113) 97 Room Air 11/16/17 10:52 98.5 Orders Orders Iv Access Insert/Monitor (11/16/17 11:11) Ecg Monitoring (11/16/17 11:11) Oximetry (11/16/17 11:11) Ondansetron Inj (Zofran Inj) (11/16/17 11:15) Phenylephrine Inj (Neosynephrine Inj)... (11/16/17 11:30) Morphine Inj (Morphine Inj) (11/16/17 11:45) Ed Discharge Order (11/16/17 12:23) [facility] Medical Decision Making Medical Screen Exam Complete: Yes Emergency Medical Condition: Yes Medical Record Reviewed: Yes Differential Diagnosis priapism, chronic priapism, medical clearance Narrative Course 27-year-old male with history of priapism presents with direction 9 hours. Patient has been seen here many times in the past for priapism. Morphine, Zofran, phenylephrine ordered. See Dr. Brandon procedure note for injection of phenylephrine into the penis. There was noticeable decrease in the erection after the first injections. 1224: On reexamination the penis is slightly flaccid and the patient denies pain. Dr. Brandon agrees with discharge. Instructed patient to follow up with urologist. Instructed patient to follow up with primary care provider. Patient verbalizes understanding and agreement with treatment plan. Patient is medically cleared and stable for discharge. Discussed reasons to return to the emergency department. Patient agrees with treatment plan. The patients vital signs are stable and the patient is stable for outpatient follow-up and treatment. Patient discharged home, stable and in no acute distress. Diagnosis Primary Impression: Priapism Referrals: [facility] Urologist Patient Instructions: General Instructions, Priapism (ED) Departure Forms: Tests/Procedures, Work Release Enter return to work date: Nov 16, 2017 Additional Instructions: Follow-up with urology Follow-up with primary care provider Return to the emergency department immediately with worsening of symptoms Med/Other Pt SpecificInfo: No Change to Meds, No Meds Exist/No RX given Disposition: 01 DISCHARGE HOME Condition: Stable Lacey Campos Nov 16, 2017 11:25
[2017-11-16] MEDS ORDERED: PHENYLEPHRINE INJ 0.5 MG, SODIUM CHLORIDE 0.9% INJ 0.95 ML in SYRINGE/BAG 1 EA I-CAVITARY ONE ×2 (11:30)
[2017-11-16] MEDS ORDERED: MORPHINE SULFATE 2 MG/ML INJ IV PUSH ONE (11:45)
[2017-11-16 11:53] VITALS: BP 166/87; PULSE 97; RESP 18; O2SAT 97
--- NOTE | 2017-11-16 12:30 | PD ---
Physical Exam Date Seen by Provider: Nov 16, 2017 Time Seen by Provider: 11:45 Narrative I, Dr. Brandon, have reviewed the advance practice practitioner's documentation and am in agreement, met with the patient face to face, made the diagnosis, and the medical decision making was done by me. *My assessment and Findings: Patient seen and evaluated with PA, please see PA note for further details. Patient has history of chronic priapism, here with priapism. He had taken terbutaline which he is on regularly but without significant success with priapism. Patient was injected with phenylephrine in the ER with good response. At this point, my plan would be to release the patient would follow-up to urology. Return for any worsening in symptoms as necessary. The plan was discussed with him and he states understanding. Data Data Last Documented VS Vital Signs Date Time Temp Pulse Resp B/P (MAP) Pulse Ox O2 Delivery O2 Flow Rate FiO2 11/16/17 11:53 97 18 166/87 (113) 97 Room Air 11/16/17 10:52 98.5 Orders Orders Iv Access Insert/Monitor (11/16/17 11:11) Ecg Monitoring (11/16/17 11:11) Oximetry (11/16/17 11:11) Ondansetron Inj (Zofran Inj) (11/16/17 11:15) Phenylephrine Inj (Neosynephrine Inj)... (11/16/17 11:30) Morphine Inj (Morphine Inj) (11/16/17 11:45) Ed Discharge Order (11/16/17 12:23) [facility] Medical Record Reviewed: Yes Supervised Visit with IVAN: Yes Procedures Procedure Narrative Injection for. Priapism: 100 g of been off friend was ejected into the corpus of the penis on both sides, and there is notable relaxing of the erection. He was observed for 10 minutes and with complete relaxation of the. Priapism. Patient tolerated procedure well. Diagnosis Primary Impression: Priapism Referrals: [facility] Urologist Patient Instructions: General Instructions, Priapism (ED) Departure Forms: Work Release, Enter return to work date: Tests/Procedures Additional Instruction: Follow-up with urology Follow-up with primary care provider Return to the emergency department immediately with worsening of symptoms Disposition: 01 DISCHARGE HOME Condition: Stable Sue Brandon MD Nov 16, 2017 12:30
== END 2017-11-16 13:12 | disposition home or self-care (01) ==
LOC: NEPC 10:48
DX: N48.30 Priapism, unspecified (principal)
CPT/HCPCS: 54235; 96374; 96375; 99284; J2270; J2370; J2405

== ENCOUNTER 2017-11-20 09:38 | Emergency (ER) | payer OTHER, MEDICAID ==
[~2017-11-20] VITALS: Ht 167.6 cm; Wt 90.0 kg
[2017-11-20 09:40] VITALS: BP 149/84; PULSE 82; RESP 14; TEMP 98; O2SAT 97
--- NOTE | 2017-11-20 09:52 | PD ---
HPI Chief Complaint: Complaint Time Seen by Provider: 09:50 Travel History International Travel<30 days: No Contact w/Intl Traveler<30days: No Traveled to known affect area: No History of Present Illness HPI 27-year-old male came to the emergency room with history of priapism. Patient has history of frequently recurring priapism. He was here in the emergency room 3 nights ago for the same condition. I have seen him approximately a month ago for priapism. Patient sees a urologist for this and has had this issue for few years now. He also happens to be HIV positive but says that he is taking his medications and his viral load is undetectable and CD4 count is good. This time he says he has had the hard on for 8 hours. He looks uncomfortable. He has a visible erection. Vital signs otherwise stable. He says he took all shower and whatever he could at home to take care of this but it did not get better. Patient says usually she requires at least the phenylephrine injection. He had been drained a few times in the last was about 6 weeks ago. [facility] Past Medical History Narrative Medical List of his past medical, surgical, social and family history is reviewed from the nursing note. Arthritis: No Asthma: No Autoimmune Disease: Yes (HIV) Anxiety: Yes Heart Rhythm Problems: No Cancer: No Cardiovascular Problems: No High Cholesterol: No Chest Pain: No Congestive Heart Failure: No COPD: No Cerebrovascular Accident: No Diabetes: No Diminished Hearing: No Endocrine: No Gastrointestinal Disorders: No GERD: No Genitourinary: Yes (PRIAPISM) Headaches: No Hepatitis: No Hiatal Hernia: No Heparin Induced Thrombocytopen: No Hypertension: No Immune Disorder: Yes (HIV) Implanted Vascular Access Dvce: No Kidney Stones: Yes Musculoskeletal: No Neurologic: No Psychiatric: No Reproductive: No Respiratory: No Immunizations Current: Yes Migraines: No Renal Failure: No Seizures: No Sleep Apnea: No Thyroid Disease: No Ulcer: No Past Surgical History Abdominal Surgery: No AICD: No Arteriovenous Shunt: No Cardiac Surgery: No Ear Surgery: No Endocrine Surgery: No Eye Surgery: No Genitourinary Surgery: Yes (HYPOSPADIA/ KIDNEY STONE REMOVED) Gynecologic Surgery: No Insulin Pump: No Joint Replacement: No Neurologic Surgery: No Oral Surgery: No Pacemaker: No Thoracic Surgery: No Other Surgery: No Social History Alcohol Use: Yes (OCCASIONALLY) Tobacco Use: No Substance Use: No Allergies-Medications (Allergen,Severity, Reaction): Coded Allergies: No Known Allergies (Verified Adverse Reaction, Unknown, 11/20/17) Comments No known drug allergies. Reported Meds & Prescriptions Reported Meds & Active Scripts Active Terbutaline Sulfate 5 Mg Tab 5 Mg PO TID Reported Sudafed (Pseudoephedrine HCl) 30 Mg Tablet Triumeq (Aiuznrod-Dpyizilobusq-Aoynmhypje) 600-50-300 Mg Tab 1 Tab PO HS Hazardous agent; use appropriate precautions for handling & disposal. Narrative Medication List of his past medical, surgical, social and family history is reviewed from the nursing note. Review of Systems Except as stated in HPI: all other systems reviewed are Neg Genitourinary: Positive: Other (priapism) Physical Exam Narrative GENERAL: Awake, alert, moderate distress SKIN: Focused skin assessment warm/dry. HEAD: Atraumatic. Normocephalic. EYES: Pupils equal and round. No scleral icterus. No injection or drainage. ENT: No nasal bleeding or discharge. Mucous membranes pink and moist. NECK: Trachea midline. No JVD. CARDIOVASCULAR: Regular rate and rhythm. No murmur appreciated. RESPIRATORY: No accessory muscle use. Clear to auscultation. Breath sounds equal bilaterally. GASTROINTESTINAL: Abdomen soft, non-tender, nondistended. Hepatic and splenic margins not palpable. : Patient has a painful erection. Circumcised. No other abnormalities noticed. MUSCULOSKELETAL: No obvious deformities. No clubbing. No cyanosis. No edema. NEUROLOGICAL: Awake and alert. No obvious cranial nerve deficits. Motor grossly within normal limits. Normal speech. PSYCHIATRIC: Appropriate mood and affect; insight and judgment normal. Data Data Last Documented VS Vital Signs Date Time Temp Pulse Resp B/P (MAP) Pulse Ox O2 Delivery O2 Flow Rate FiO2 11/20/17 11:07 11/20/17 10:17 79 11/20/17 09:40 98.0 14 97 Orders Orders Phenylephrine Inj (Neosynephrine Inj)... (11/20/17 10:00) Ed Discharge Order (11/20/17 10:28) [facility] Medical Decision Making Medical Screen Exam Complete: Yes Emergency Medical Condition: Yes Medical Record Reviewed: Yes Differential Diagnosis Recurrent priapism Narrative Course 10:34 AM after injecting the phenylephrine the erection started to subside almost immediately. Please refer to my procedure note. Patient is comfortable going home at this point. He will be watched for 20 minutes and vital signs retaken and then discharge. Procedures Procedure Narrative Penile injection with phenylephrine: Pharmacy had sent 1 mL of reconstituted phenylephrine which was 500 g per mL. 0.5 mL was injected on either side of the penile shaft at the base after penetrating the tunica albuginea. Once corpus cavernosum was entered blood was noticed to flashback into the syringe upon redrawing. At this point the injection was done. Patient tolerated the procedure well. Instantly direction was noticed to go down. Patient started having instant relief. EKG Prior to Arrival: No Diagnosis Primary Impression: Priapism Referrals: Primary Care Physician Additional Instructions: Please talk to urologist and see if he would prescribe you the self injectable phenylephrine for these frequently recurring episodes of priapism. Return to the ER if the condition worsens or any other new concerns. Med/Other Pt SpecificInfo: No Change to Meds Disposition: 01 DISCHARGE HOME Condition: Stable Evan Johnson MD Nov 20, 2017 09:52
[2017-11-20] MEDS ORDERED: PHENYLEPHRINE INJ 0.5 MG, SODIUM CHLORIDE 0.9% INJ 0.95 ML in SYRINGE/BAG 1 EA I-CAVITARY ONE ×2 (10:00)
[2017-11-20 10:17] VITALS: BP 151/83; PULSE 79
== END 2017-11-20 11:06 | disposition home or self-care (01) ==
LOC: NEPD 09:38
DX: N48.30 Priapism, unspecified (principal)
CPT/HCPCS: 54220; 99283; J2370; 96374

== ENCOUNTER 2017-11-24 12:31 | Emergency (ER) | payer MEDICAID, OTHER ==
[~2017-11-24] VITALS: Ht 167.6 cm; Wt 90.0 kg
[2017-11-24 12:33] VITALS: BP 154/92; PULSE 115; RESP 20; TEMP 99; O2SAT 98
[2017-11-24] MEDS ORDERED: PHENYLEPHRINE INJ 0.5 MG, SODIUM CHLORIDE 0.9% INJ 0.95 ML in SYRINGE/BAG 1 EA I-CAVITARY ONE ×2 (13:00)
--- NOTE | 2017-11-24 13:02 | PD ---
HPI Chief Complaint: Complaint Time Seen by Provider: 12:45 Travel History International Travel<30 days: No Contact w/Intl Traveler<30days: No Traveled to known affect area: No History of Present Illness HPI The patient is a 27-year-old male who presents to the emergency department for priapism. The patient has a history of recurrent priapism's, was last seen just after [place] where he received phenylephrine when he received good results. The patient states he does have a history of recurrent priapism's, denies any illicit drug use including cocaine. He does have a history of HIV and is currently on antiviral therapy. He denies any nausea, vomiting, or abdominal pain. Symptoms are moderate, similar to previous episodes, and alleviated in the past was phenylephrine intracavernous. The patient has seen the urologist, Dr. Gonzalez, in the past. The patient was prescribed terbutaline and Sudafed, however, does not have the Sudafed secondary to financial issues. The patient did try terbutaline prior to arrival. PFSH Past Medical History Arthritis: No Asthma: No Autoimmune Disease: Yes (HIV) Anxiety: Yes Heart Rhythm Problems: No Cancer: No Cardiovascular Problems: No High Cholesterol: No Chest Pain: No Congestive Heart Failure: No COPD: No Cerebrovascular Accident: No Diabetes: No Diminished Hearing: No Endocrine: No Gastrointestinal Disorders: No GERD: No Genitourinary: Yes (PRIAPISM) Headaches: No Hepatitis: No Hiatal Hernia: No Heparin Induced Thrombocytopen: No Hypertension: No Immune Disorder: Yes (HIV) Implanted Vascular Access Dvce: No Kidney Stones: Yes Musculoskeletal: No Neurologic: No Psychiatric: No Reproductive: No Respiratory: No Immunizations Current: Yes Migraines: No Renal Failure: No Seizures: No Sleep Apnea: No Thyroid Disease: No Ulcer: No Influenza Vaccination: Yes Past Surgical History Abdominal Surgery: No AICD: No Arteriovenous Shunt: No Cardiac Surgery: No Ear Surgery: No Endocrine Surgery: No Eye Surgery: No Genitourinary Surgery: Yes (HYPOSPADIA/ KIDNEY STONE REMOVED) Gynecologic Surgery: No Insulin Pump: No Joint Replacement: No Neurologic Surgery: No Oral Surgery: No Pacemaker: No Thoracic Surgery: No Other Surgery: No Social History Alcohol Use: Yes (OCCASIONALLY) Tobacco Use: No Substance Use: No Allergies-Medications (Allergen,Severity, Reaction): Coded Allergies: No Known Allergies (Verified Adverse Reaction, Unknown, 11/24/17) Reported Meds & Prescriptions Reported Meds & Active Scripts Active Terbutaline Sulfate 5 Mg Tab 5 Mg PO TID Reported Triumeq (Uzaqcuxv-Gvdyxhllxwke-Jhqwdiabui) 600-50-300 Mg Tab 1 Tab PO HS Hazardous agent; use appropriate precautions for handling & disposal. Review of Systems Except as stated in HPI: all other systems reviewed are Neg General / Constitutional: No: Fever Cardiovascular: No: Chest Pain or Discomfort Respiratory: No: Shortness of Breath Gastrointestinal: No: Nausea, Vomiting, Abdominal Pain Genitourinary: Positive: Other (priapism) Skin: No Rash Physical Exam Narrative GENERAL: Awake, alert, 27-year-old male who appears his stated age and is in no acute respiratory distress. SKIN: Focused skin assessment warm/dry. HEAD: Atraumatic. Normocephalic. EYES: No injection or drainage. ENT: No nasal bleeding or discharge. Mucous membranes pink and moist. NECK: Trachea midline. No JVD. GASTROINTESTINAL: Abdomen soft, non-tender, nondistended. Genitourinary: Patient has a priapism. MUSCULOSKELETAL: No obvious deformities. No clubbing. No cyanosis. No edema. NEUROLOGICAL: Awake and alert. No obvious cranial nerve deficits. Motor grossly within normal limits. Normal speech. PSYCHIATRIC: Appropriate mood and affect; insight and judgment normal. Data Data Last Documented VS Vital Signs Date Time Temp Pulse Resp B/P (MAP) Pulse Ox O2 Delivery O2 Flow Rate FiO2 11/24/17 13:46 106 154/92 11/24/17 12:33 99.0 20 98 Room Air Orders Orders Phenylephrine Inj (Neosynephrine Inj)... (11/24/17 13:00) Ed Discharge Order (11/24/17 15:07) [facility] Medical Decision Making Medical Screen Exam Complete: Yes Emergency Medical Condition: Yes Medical Record Reviewed: Yes Interpretation(s) Differential Diagnosis Differential diagnosis includes priapism, cocaine abuse, Phosphodiesterase medication abuse, medication side effect, idiopathic priapism. Narrative Course Phenylephrine was ordered from pharmacy. 100 mics of phenylephrine was injected bilaterally into the cavernosum. The patient was reevaluated at 3 PM, the priapism had resolved. The patient feels better. He is advised to follow- up with his urologist. Return if symptoms worsen or progress. Diagnosis Primary Impression: Priapism Patient Instructions: General Instructions Additional Instructions: Follow-up with your urologist. Return if symptoms worsen or progress. Med/Other Pt SpecificInfo: No Change to Meds Disposition: 01 DISCHARGE HOME Condition: Stable Uriel Santa MD Nov 24, 2017 13:02
[2017-11-24 13:46] VITALS: BP 154/92; PULSE 106
== END 2017-11-24 15:33 | disposition home or self-care (01) ==
LOC: NEPC 12:31
DX: N48.30 Priapism, unspecified (principal); F41.9 Anxiety disorder, unspecified; Z21 Asymptomatic human immunodeficiency virus [HIV] infection status; Z87.442 Personal history of urinary calculi; Z79.899 Other long term (current) drug therapy
CPT/HCPCS: 96374; 99284; J2370

== ENCOUNTER 2019-01-21 13:56 | Inpatient (IN) ==
[2019-01-21] MEDS ORDERED: Sod Chloride 0.9% Inj 1,000 ML IV.SIG ONE (15:07)
[2019-01-21] MEDS ORDERED: Sod Chloride 0.9% Inj 1,000 ML IV.CONT SCH (15:15)
--- NOTE | 2019-01-21 15:15 | ED ---
HPI General Chief complaint: Abdominal Pain Stated complaint: Abd Pain/Diarrhea/Fever/N/V Poss C Diff Time Seen by Provider: 01/21/19 15:07 Source: patient Mode of arrival: ambulatory Limitations: no limitations History of Present Illness HPI narrative: This 29-year-old male complaining of fever, abdominal cramps and diarrhea. It is been going on for about 2 days. He says that last week he was found to have a bacteria in his stool. He thinks it might be H. pylori. He was put on 3 antibiotics twice a day. He seemed to feel better. He started getting sick about 2 days ago. He is having pain which is somewhat intermittent throughout the abdomen but greatest in the lower quadrants. He has a history of a kidney stone. He is under treatment for HIV and his viral load has been undetectable. He has been able to eat but not so much today. Related Data Home Medications Medication Instructions Recorded Confirmed [id number] 1 tab PO DAILY 01/21/19 01/21/19 [Triumeq] Allergies Allergy/AdvReac Type Severity Reaction Status Date / Time No Known Allergies Allergy Verified 01/21/19 14:30 Review of Systems ROS: all other systems reviewed are negative Gastrointestinal Reports change in bowel habits and Reports diarrhea PMFSH Medical History Medical History HIV antibody positive (Acute) History of kidney stones (Acute) Social History Social History Substance History: No History of Abuse Smoking Status: Never smoker How Often Do You Have a Drink Containing Alcohol: 2 to 4 times a month Recent Travel in [facility] within the Last 8 Weeks: No Recent Out of Country Travel within the Last 8 Weeks: No Immunization History Tetanus Immunization: Unsure Exam Narrative Exam Narrative: GENERAL: Well-developed male SKIN: Focused skin assessment warm/dry. HEAD: Atraumatic. Normocephalic. EYES: Pupils equal and round. No scleral icterus. No injection or drainage. ENT: No nasal bleeding or discharge. Mucous membranes pink and moist. NECK: Trachea midline. No JVD. CARDIOVASCULAR: Regular rate and rhythm. No murmur appreciated. RESPIRATORY: No accessory muscle use. Clear to auscultation. Breath sounds equal bilaterally. GASTROINTESTINAL: Abdomen soft, there is some lower abdominal tenderness, nondistended. Hepatic and splenic margins not palpable. MUSCULOSKELETAL: No obvious deformities. No clubbing. No cyanosis. No edema. NEUROLOGICAL: Awake and alert. No obvious cranial nerve deficits. Motor grossly within normal limits. Normal speech. PSYCHIATRIC: Appropriate mood and affect; insight and judgment normal. Course Initial Documented Vital Signs Temperature 100.3 F H 01/21/19 14:28 Pulse Rate 109 H 01/21/19 14:28 Respiratory Rate 16 01/21/19 14:28 Blood Pressure 133/76 01/21/19 14:28 Pulse Oximetry 99 01/21/19 14:28 Last Documented Vital Signs Temperature 98.7 F 01/21/19 20:15 Pulse Rate 88 01/21/19 20:15 Respiratory Rate 15 01/21/19 20:15 Blood Pressure 132/76 01/21/19 20:15 Pulse Oximetry 97 01/21/19 18:00 Sign Out Sign Out Data: Patient Sign Out occurred on 01/21/19 at 16:12. Patient's care was discussed, and care was transferred from Skinny Dahl MD to Denton Cabrera MD. Sign Out Comment: This gentleman presented with diarrhea and abdominal pain. Workup is pending and the patient will be followed up by the oncoming physician Last updated by Skinny Dahl MD at 01/21/19 16:03 Medical Decision Making MDM Narrative Medical decision making narrative: Deborah mcneill dictatin male history of HIV here for evaluation of abdominal pain and diarrhea. He fits sepsis criteria with tachycardia, fever, elevated lactic acid and colitis as a source of infection. he finished 14days of antibiotics 1 week ago. His symptoms started 2days ago, he does have mild tenderness on abdominal exam but no rebound or gaurding. sepsis protocol followed, he will be started on Zosyn. He is unable to give us stool sample for C.diff. according to patient his HIV viral load is undetectable. Medical Screen Exam Complete: Yes Emergency Medical Condition: Yes Differential Diagnosis Differential Diagnosis: Differential includes gastroenteritis, diverticulitis, colitis, C. difficile Lab Data Result diagrams: 01/21/19 15:25 01/21/19 15:25 Lab Results 01/21/19 01/21/19 01/21/19 Range/Units 15:10 15:25 15:25 CBC w Diff Auto diff final WBC 7.6 (4.0-11.0) th/mm3 RBC 4.87 (4.50-5.90) mil/mm3 Hgb 16.0 (13.0-17.0) gm/dL Hct 46.0 (39.0-51.0) % MCV 94.5 (80.0-100.0) fL MCH 32.8 (27.0-34.0) pg MCHC 34.7 (32.0-36.0) % RDW 12.5 (11.6-17.2) % Plt Count 135 L (150-450) th/mm3 MPV 7.5 (7.0-11.0) fL Neut % (Auto) 85.0 H (16.0-70.0) % Lymph % (Auto) 9.1 (9.0-44.0) % [place] % (Auto) 5.6 (0.0-8.0) % Eos % (Auto) 0.1 (0.0-4.0) % Baso % (Auto) 0.2 (0.0-2.0) % Neut # (Auto) 6.5 (1.8-7.7) th/mm3 Lymph # (Auto) 0.7 L (1.0-4.8) th/mm3 [place] # (Auto) 0.4 (0.0-0.9) th/mm3 Eos # (Auto) 0.0 (0.0-0.4) th/mm3 Baso # (Auto) 0.0 (0.0-0.2) th/mm3 WBC Differential . Differential Comment . Sodium 132 L (136-145) meq/L Potassium 3.9 (3.5-5.1) meq/L Chloride 101 (98-107) meq/L Carbon Dioxide 23.3 (21.0-32.0) meq/L Anion Gap 8 (5-15) meq/L BUN 10 (7-18) mg/dL Creatinine 1.30 (0.60-1.30) mg/dL Estimated GFR 65 L (>89) mL/min Random Glucose 146 H (74-106) mg/dL Lactic Acid (0.4-2.0) mmol/L Calcium 8.7 (8.5-10.1) mg/dL Magnesium 1.8 (1.5-2.5) mg/dL Total Bilirubin 1.0 (0.2-1.0) mg/dL AST 28 (15-37) U/L ALT 22 (12-78) U/L Alkaline Phosphatase 81 (45-117) U/L Total Protein 8.1 (6.4-8.2) g/dL Albumin 4.1 (3.4-5.0) g/dL Lipase 49 L (73-393) U/L Urine Color Dark-yellow H (Yellw/Straw) Urine Clarity Clear (Clear) Urine pH 6.5 (5.0-8.5) Ur Specific [place] 1.025 (1.002-1.035) Urine Protein 100 H (Neg-Trace) mg/dL Urine Glucose (UA) Negative (Negative) mg/dL Urine Ketones Negative (Negative) mg/dL Urine Occult Blood Negative (Negative) Urine Nitrate Negative (Negative) Urine Bilirubin Negative (Negative) Urine Urobilinogen 0.2 (Less than 2) mg/dL Ur Leukocyte Esterase Negative (Negative) Urine WBC 0-5 (0-5) /hpf Amorphous Sediment Few H (None) /hpf Urine Bacteria Few H (None) /hpf Urine Mucus Many H (Occasional) /lpf Micro UA Comment Culture not ind Ur Microscopic Review Microscopic reviewed Urine Culture Comments Culture not ind 01/21/19 01/21/19 Range/Units 16:45 19:55 CBC w Diff WBC (4.0-11.0) th/mm3 RBC (4.50-5.90) mil/mm3 Hgb (13.0-17.0) gm/dL Hct (39.0-51.0) % MCV (80.0-100.0) fL MCH (27.0-34.0) pg MCHC (32.0-36.0) % RDW (11.6-17.2) % Plt Count (150-450) th/mm3 MPV (7.0-11.0) fL Neut % (Auto) (16.0-70.0) % Lymph % (Auto) (9.0-44.0) % [place] % (Auto) (0.0-8.0) % Eos % (Auto) (0.0-4.0) % Baso % (Auto) (0.0-2.0) % Neut # (Auto) (1.8-7.7) th/mm3 Lymph # (Auto) (1.0-4.8) th/mm3 [place] # (Auto) (0.0-0.9) th/mm3 Eos # (Auto) (0.0-0.4) th/mm3 Baso # (Auto) (0.0-0.2) th/mm3 WBC Differential Differential Comment Sodium (136-145) meq/L Potassium (3.5-5.1) meq/L Chloride (98-107) meq/L Carbon Dioxide (21.0-32.0) meq/L Anion Gap (5-15) meq/L BUN (7-18) mg/dL Creatinine (0.60-1.30) mg/dL Estimated GFR (>89) mL/min Random Glucose (74-106) mg/dL Lactic Acid 2.1 H 0.8 (0.4-2.0) mmol/L Calcium (8.5-10.1) mg/dL Magnesium (1.5-2.5) mg/dL Total Bilirubin (0.2-1.0) mg/dL AST (15-37) U/L ALT (12-78) U/L Alkaline Phosphatase (45-117) U/L Total Protein (6.4-8.2) g/dL Albumin (3.4-5.0) g/dL Lipase (73-393) U/L Urine Color (Yellw/Straw) Urine Clarity (Clear) Urine pH (5.0-8.5) Ur Specific [place] (1.002-1.035) Urine Protein (Neg-Trace) mg/dL Urine Glucose (UA) (Negative) mg/dL Urine Ketones (Negative) mg/dL Urine Occult Blood (Negative) Urine Nitrate (Negative) Urine Bilirubin (Negative) Urine Urobilinogen (Less than 2) mg/dL Ur Leukocyte Esterase (Negative) Urine WBC (0-5) /hpf Amorphous Sediment (None) /hpf Urine Bacteria (None) /hpf Urine Mucus (Occasional) /lpf Micro UA Comment Ur Microscopic Review Urine Culture Comments Imaging Data Radiologist's impression: Abdomen/Pelvis CT 01/21/19 16:28 CONCLUSION: 1. Colitis. Discharge Plan Discharge Disposition Patient Disposition: ED Admit(ED Internal Use Only) Discharge Order Discharge Orders: ED Use Only Admit Order (Routine); Ordered 01/21/19 Ordered By: Denton Cabrera Physicians Team ED Provider: Denton Cabrera Primary Care Provider: Ene Berrios Attending Provider: Ted Elliott Discharge Interventions Interventions: Vital Signs Last Done: 01/21/19 18:00 ED Discharge Assessment Last Done: 01/21/19 20:36 Status ED Status: Admitted Observation Patient
[2019-01-21] MEDS ORDERED: Morphine Inj 4 MG, Morphine Inj 2 MG IV.PUSH ONE ×2 (15:29)
[2019-01-21 15:35] LABS: Baso % (Auto) 0.2 % (0.0-2.0); Eos % (Auto) 0.1 % (0.0-4.0); Lymph # (Auto) 0.7 th/mm3 (1.0-4.8); Lymph % (Auto) 9.1 % (9.0-44.0); Mean Corpuscular HGB Conc 34.7 % (32.0-36.0); Mean Corpuscular Hemoglobin 32.8 pg (27.0-34.0); Mean Corpuscular Volume 94.5 fL (80.0-100.0); Mean Platelet Volume 7.5 fL (7.0-11.0); Mono # (Auto) 0.4 th/mm3 (0.0-0.9); Mono % (Auto) 5.6 % (0.0-8.0); Neut # (Auto) 6.5 th/mm3 (1.8-7.7); Platelet Count 135 th/mm3 (150-450); Red Blood Count 4.87 mil/mm3 (4.50-5.90); Red Cell Distribution Width 12.5 % (11.6-17.2); White Blood Count 7.6 th/mm3 (4.0-11.0)
[2019-01-21 15:48] LABS: Bilirubin,Urine Negative (Negative); Clarity,Urine Clear (Clear); Glucose,Urine (UA) Negative (Negative); Leukocyte Esterase,Urine Negative (Negative); Nitrite,Urine Negative (Negative); PH,Urine 6.5 (5.0-8.5); Specific Gravity,Urine 1.025 (1.002-1.035); Urobilinogen,Urine 0.2 mg/dL (Less than 2)
[2019-01-21 15:50] LABS: Color,Urine Dark-Yellow (Yellw/Straw)
[2019-01-21 15:55] LABS: Chloride 101 meq/L (98-107); Sodium 132 meq/L (136-145)
[2019-01-21 15:55] LABS: Amorphous Sediment,Urine Few /hpf; Bacteria,Urine Few /hpf; Mucus,Urine Many /lpf (Occasional); WBC,Urine 0-5 /hpf (0-5)
[2019-01-21 15:59] LABS: Albumin 4.1 g/dL (3.4-5.0); Anion Gap 8 meq/L (5-15); Blood Urea Nitrogen 10 mg/dL (7-18); Calcium 8.7 mg/dL (8.5-10.1); Carbon Dioxide 23.3 meq/L (21.0-32.0); Glucose,Random 146 mg/dL (74-106); Lipase 49 U/L (73-393); Magnesium 1.8 mg/dL (1.5-2.5)
[2019-01-21 16:02] LABS: Alanine Aminotransferase 22 U/L (12-78); Aspartate Aminotransferase 28 U/L (15-37); Glomerular Filtration Rate 65 mL/min (>89)
[2019-01-21 16:04] LABS: Total Protein 8.1 g/dL (6.4-8.2)
[2019-01-21 16:05] LABS: Alkaline Phosphatase 81 U/L (45-117)
[2019-01-21 16:06] LABS: Potassium 3.9 meq/L (3.5-5.1)
[2019-01-21] MEDS ORDERED: Ketorolac Inj 30 MG/ML (IVP) Vial IV.PUSH ONE (17:08)
--- NOTE | 2019-01-21 17:10 | CT ---
EXAM DATE: 01/21/2019 5:02 PM EST AGE/SEX: 29 years / Male INDICATIONS: Lower abdominal pain with cramping. Loose stools, nausea and fever. CLINICAL DATA: This is the patient's initial encounter. Patient reports that signs and symptoms have been present for 2 days and indicates a pain score of 8/10. MEDICAL/SURGICAL HISTORY: Renal calculi. HIV. None. ORAL CONTRAST: No oral contrast ingested. RADIATION DOSE: 11.77 CTDI (mGy) COMPARISON: POI, XR ABDOMEN KUB, 02/19/2018. . TECHNIQUE: Multiple contiguous axial images were obtained through the abdomen and pelvis following b olus infusion of 93 ml Omnipaque 350 (iohexol) nonionic water-soluble contrast as a single exam dos e. No oral contrast ingested. Using automated exposure control and adjustment of the mA and/or kV ac cording to patient size, radiation dose was kept as low as reasonably achievable to obtain optimal di agnostic quality images. DICOM format image data is available electronically for review and comparis on. FINDINGS: Lung bases are clear. Adrenals, spleen, pancreas, liver, gallbladder, stomach unremarkable. Urinary b ladder and prostate are unremarkable. There is abnormal STIR ventral bowel wall thickening involving the entire colon most pronounced in the ascending and transverse colon. This is characteristic of col itis. No adenopathy or aneurysm. No free fluid or free air. The osseous structures demonstrate bilate ral L5 pars defects.. CONCLUSION: 1. Colitis. Electronically signed by: Ancelmo Hutton MD Board Certified Radiologist 01/21/2019 5:08 PM EST
[2019-01-21] MEDS ORDERED: Piperacil/Tazo 3.375 GM Premix 3.375 GM/50 ML PIGGYBACK IV.SIG STA (17:32)
[2019-01-21] MEDS: Morphine Sulfate Inj 2 MG/ML Vial IV.PUSH PRN (21:30)
[2019-01-21] MEDS ORDERED: ABACAVIR DOLUTEGRAVIR LAMIVUD PO SCH (22:45)
[2019-01-22] MEDS ORDERED: Levofloxacin 500 mg Premix Inj 500 MG/100 ML PIGGYBACK IV.SIG SCH (01:00)
[2019-01-22] MEDS: Morphine Sulfate Inj 2 MG/ML Vial IV.PUSH PRN (01:43)
[2019-01-22] MEDS ORDERED: Acetaminophen 325 MG Tablet PO ONE (02:01)
[2019-01-22] MEDS: Sod Chloride 0.9% Inj 1,000 ML IV.CONT SCH ×3 (03:57→22:26)
[2019-01-22] MEDS ORDERED: Acetaminophen 325 MG Tablet PO PRN (09:49)
[2019-01-22] MEDS ORDERED: Temazepam 15 MG Capsule PO PRN (09:49)
--- NOTE | 2019-01-22 09:56 | P.HPIM ---
History of Present Illness Primary Care Physician: Ene Berrios MD Chief Complaint: Diarrheal episode History of Present Illness: 29-year-old male for past medical history of HIV currently on triple therapy, presented to the ED for evaluation of worsening history of watery diarrhea times 2 days duration associated with febrile episode and abdominal cramping. Patient was recently started on triple therapy for H. pylori 3 days ago and he reported some improvement of epigastric pain. Patient endorsed 20-30 times watery stool without any bloody diarrhea per day; and since admission he has had over [address] abdomen and pelvics in the ED revealed ventral bowel wall thickening involving the entire colon most pronounced in the ascending and transverse colon, suggestive of colitis for which patient is currently on IV antibiotics including Levaquin and Flagyl. C. difficile PCR was negative pending ST enteric pathogen PCR. Inpatient Certification Inpatient Certification: I certify that the inpatient services were ordered in accordance with Medicare regulations governing the order. This includes certification that hospital inpatient services are reasonable and necessary and in the case of services not specified as inpatient-only under 42 CFR 419.22(n), that they are appropriately provided as inpatient services in accordance to with the 2-midnight benchmark under 43 CFR 412.3(e) Estimated Total Length of Stay (Days): 2 Plans for Post Hospital Care: Not yet determined Review of Systems Review of Systems: all other systems reviewed are negative [facility] Medical History Medical History HIV antibody positive (Acute) History of kidney stones (Acute) Social History Social History Substance History: No History of Abuse Second Hand Smoke Exposure: No Smoking Status: Former smoker How Often Do You Have a Drink Containing Alcohol: Monthly or less Recent Travel in [place] within the Last 8 Weeks: No Recent Out of Country Travel within the Last 8 Weeks: No Immunization History Tetanus Immunization: Unsure Hx Influenza Vaccine This Season: Yes Medications and Allergies Allergies Allergy/AdvReac Type Severity Reaction Status Date / Time No Known Allergies Allergy Verified 01/21/19 14:30 Home Medications Medication Instructions Recorded Confirmed Type [id number]-hnyfurckeego-qbyithf 1 tab PO HS 01/21/19 01/21/19 History [Triumeq] Active Medications: Active Medications Abacavir Sulfate (Ziagen) 600 mg PO HS JACOBO Acetaminophen (Tylenol) 650 mg PO Q4H PRN PRN Reason: Temp > 100.4 Dolutegravir Sodium (Tivicay) 50 mg PO HS JACOBO Metronidazole/Sodium Chloride (Flagyl 500 Mg Inj) 100 mls @ 100 mls/hr IV.SIG Q8H [facility] Last Infusion: 01/22/19 03:11 Dose: Infused Sodium Chloride (Ns Inj) 1,000 mls @ 84 mls/hr IV.CONT .[id number] [facility] Last Admin: 01/22/19 09:39 Dose: Not Given Levofloxacin/Dextrose (Levaquin 500 Mg Premix Inj) 500 mg in 100 mls @ 100 mls/ hr IV.SIG Q24H [facility] Last Infusion: 01/22/19 01:40 Dose: Infused Lamivudine (Epivir) 300 mg PO HS JACOBO Morphine Sulfate (Morphine Inj) 2 mg IV.PUSH Q4H PRN PRN Reason: Acute Pain Last Admin: 01/22/19 01:43 Dose: 2 mg Ondansetron HCl (Zofran Inj) 4 mg IV.PUSH Q6H PRN PRN Reason: NAUSEA Abacavir- Dolutegravir-Lamivud [Triumeq] 1 Tab 0 each PO HS JACOBO Sodium Chloride (Ns Flush) 2 ml IV.FLUSH PRN PRN PRN Reason: FLUSH AFTER USING IV ACCESS Sodium Chloride (Ns Flush) 2 ml IV.FLUSH BID [facility] Last Admin: 01/22/19 09:39 Dose: Not Given Sodium Chloride (Ns Flush) 2 ml IV.FLUSH PRN PRN PRN Reason: FLUSH AFTER USING IV ACCESS Temazepam (Restoril) 15 mg PO HS PRN PRN Reason: INSOMNIA Physical Exam Vital signs: Vital Signs 01/21/19 14:28 01/21/19 14:30 01/21/19 17:07 Temperature 100.3 F H 101.5 F H Pulse Rate 109 H 100 H 97 H Respiratory Rate 16 18 18 Blood Pressure 133/76 140/66 149/59 H Pulse Oximetry 99 98 100 01/21/19 18:00 01/21/19 20:15 01/22/19 00:00 Temperature 99.7 F H 98.7 F 101.8 F H Pulse Rate 90 88 104 H Respiratory Rate 18 15 20 Blood Pressure 132/76 116/59 L Pulse Oximetry 97 96 01/22/19 01:35 01/22/19 08:00 Temperature 102.2 F H 97.7 F Pulse Rate 83 Respiratory Rate 18 Blood Pressure 123/60 Pulse Oximetry 98 Intake & Output 01/21/19 01/22/19 01/22/19 18:59 06:59 18:59 Intake Total 1050 / 1050 800 / 800 0 / 0 Output Total 300 / 300 Balance 1050 / 1050 800 / 800 -300 / -300 Weight 90.2 kg 93 kg Intake: IV 1050 / 1050 800 / 800 NS Inj 1,000 ML @ 125 mls/hr IV 500 / 500 .CONT .Q8H [facility]ACOBO Rx#:[id number] Levaquin 500 mg Premix Inj 500 100 / 100 mg In 100 ml @ 100 mls/hr IV. SIG Q24H JACOBO Rx#:[id number] Zosyn 3.375 GM Premix 3.375 gm 50 / 50 In 50 ml @ 100 mls/hr IV.SIG ONCE STA Rx#:[id number] NS Inj 1,000 ML @ Wide Open IV. 1000 / 1000 SIG BOLUS ONE Rx#:[id number] Flagyl 500 MG Inj 100 ML @ 100 200 / 200 mls/hr IV.SIG Q8H JACOBO Rx#: [id number] Oral 0 / 0 Output: Urine 300 / 300 Other: # Voids 4 Date of Last Bowel Movement 01/21/19 Weight On Admission 90.2 kg Narrative: GENERAL: NAD SKIN: Warm and dry. HEAD: Atraumatic. Normocephalic. EYES: Pupils equal and round. No scleral icterus. No injection or drainage. ENT: No nasal bleeding or discharge. Mucous membranes pink and moist. NECK: Trachea midline. No JVD. CARDIOVASCULAR: Regular rate and rhythm. RESPIRATORY: No accessory muscle use. Clear to auscultation. Breath sounds equal bilaterally. GASTROINTESTINAL: Abdomen soft, mildly tender, mildly distended. Hepatic and splenic margins not palpable. MUSCULOSKELETAL: Extremities without clubbing, cyanosis, or edema. No obvious deformities. NEUROLOGICAL: Awake and alert. No obvious cranial nerve deficits. Motor grossly within normal limits. Five out of 5 muscle strength in the arms and legs. Normal speech. PSYCHIATRIC: Appropriate mood and affect; insight and judgment normal. Results Labs CBC & Chem 7: 01/21/19 15:25 01/21/19 15:25 Imaging Impressions Abdomen/Pelvis CT 01/21/19 16:28 CONCLUSION: 1. Colitis. Caprini VTE Risk Assessment Caprini VTE Risk Assessment: No/Low Risk (score <= 1) Epifaniorini Risk Assessment Model: Point Value = 1 Point Value = 2 Point Value = 3 Point Value = 5 Age 41-60 Minor surgery BMI > 25 kg/m2 Swollen legs Varicose veins or History of unexplained or recurrent spontaneous Oral contraceptives or hormone replacement Sepsis (< 1 month) Serious lung disease, including pneumonia (< 1 month) Abnormal pulmonary function Acute myocardial infarction Congestive heart failure (< 1 month) History of inflammatory bowel disease Medical patient at bed rest Age 61-74 Arthroscopic surgery Major open surgery (> 45 min) Laparoscopic surgery (> 45 min) Malignancy Confined to bed (> 72 hours) Immobilizing plaster cast Central venous access Age >= 75 History of VTE Family history of VTE Factor V Leiden Prothrombin [id number] Lupus anticoagulant Anticardiolipin antibodies Elevated serum homocysteine Heparin-induced thrombocytopenia Other congenital or acquired thrombophilia Stroke (< 1 month) Elective arthroplasty Hip, pelvis, or leg fracture Acute spinal cord injury (< 1 month) Prophylaxis Regimen: Total Risk Factor Score Risk Level Prophylaxis Regimen 0-1 Low Early ambulation 2 Moderate Order ONE of the following: *Sequential Compression Device (SCD) *Heparin 5000 units SQ BID 3-4 Higher Order ONE of the following medications: *Heparin 5000 units SQ TID *Enoxaparin/Lovenox 40 mg SQ daily (WT < 150 kg, CrCl > 30 mL/min) *Enoxaparin/Lovenox 30 mg SQ daily (WT < 150 kg, CrCl > 10-29 mL/min) *Enoxaparin/Lovenox 30 mg SQ BID (WT < 150 kg, CrCl > 30 mL/min) AND/OR *Sequential Compression Device (SCD) 5 or more Highest Order ONE of the following medications: *Heparin 5000 units SQ TID (Preferred with Epidurals) *Enoxaparin/Lovenox 40 mg SQ daily (WT < 150 kg, CrCl > 30 mL/min) *Enoxaparin/Lovenox 30 mg SQ daily (WT < 150 kg, CrCl > 10-29 mL/min) *Enoxaparin/Lovenox 30 mg SQ BID (WT < 150 kg, CrCl > 30 mL/min) AND *Sequential Compression Device (SCD) Assessment and Plan Plan 29-year-old man with Sepsis: HR>90 with Temp of 100.3 on admission associated with lactic acid of 2.1. Source of infection colitis Currently on Levaquin and Flagyl pending culture report Colitis CT abdomen noted and reviewed by me with finding of ventral bowel wall thickening involving the entire colon most pronounced in the ascending and transverse colon, suggestive of colitis Currently on IV Levaquin and Flagyl C. difficile PCR negative pending ST enteric pathogen PCR Check stool culture Start clear liquid diet and continue with IV fluid hydration Secondary to patient history of HIV, consult infectious disease specialist Dr. Berrios HIV positive status Continue with triple therapy Consult Dr. Berrios, patient's HIV specialist DVT prophylaxis: Patient is a low risk for VT E, encourage ambulation and B- SCDs while in bed H&P: Quality VTE Deep Vein Thrombosis/Pulmonary Embolism Present on Admission: No
[2019-01-22] MEDS ORDERED: Morphine Sulfate Inj 2 MG/ML Vial IV.PUSH PRN (16:27)
--- NOTE | 2019-01-22 20:18 | P.CON ---
History of Present Illness Service: DR BERRIOS Consult date: 01/22/19 Requesting Physician: Nathaniel Hood Reason for Consult: FEVER KNOWN TO SERVICE Primary Care Provider: Ene Berrios MD Chief Complaint: Diarrheal episode History of Present Illness: 29 YR OLD MALE KNOWN TO OUR SERVICE WHO STATES FRIDAY HE STARTED TO HAVE ABDOMINAL PAIN AND DIARRHEA WITH FEVER AFTER EATING DINNER. HE STATES HIS FAMILY ATE THE SAME DINNER AND HE WAS THE ONLY ONE WHO GOT SICK. HE IS STILL HAVING VERY WATER DIARRHEA. HIS STOOL IS POSITIVE FOR SALMONELLA. HE STATES HE DID EAT AT [address] THE . HE IS FEELING BETTER, BUT STOOLS ARE LOOSE. HE IS POSITIVE HIV BUT VERY CONTROLLED. Review of Systems Constitutional: Reports body ache(s), Reports chills, Reports fever(s), Reports malaise, Denies anorexia, Denies weakness, Denies weight gain Eyes: Denies blurry vision Ears, Nose, Mouth, and Throat: Denies bleeding gums Cardiovascular: Denies chest pain at rest Respiratory: Denies change in phlegm color Gastrointestinal: Reports abdominal pain, Reports change in stools, Reports nausea, Reports other (DIARRHEA), Denies excessive passing of gas Genitourinary: Denies blood in semen, Denies blood in urine Musculoskeletal: Denies abnormal walking Skin/Breast: Denies acne, Denies itching Neurologic: Denies abnormal hearing Psychiatric: Denies abnormal sleep pattern Endocrine: Denies cold intolerance Hematologic/Lymphatic: Denies easy bleeding PMFSH - History History Provided By: Patient - Medical History Medical History: Medical History (Last Reviewed 01/21/19 @ 15:14 by Skinny Dahl MD) HIV antibody positive History of kidney stones - Family History Family History: Family History (Last Reviewed 01/21/19 @ 15:14 by Skinny Dahl MD) Other Diabetes - Tobacco History Second Hand Smoke Exposure: No Tobacco Use In Past 30 Days: No Smoking Status: Former smoker - Alcohol History How Often Do You Have a Drink Containing Alcohol: Monthly or less - Substance Use History Substance History: No History of Abuse - Travel History Recent Travel in the [place] Within the Last 8 Weeks: No Recent Travel Out of the Country Within the Last 8 Weeks: No - Immunization History Tetanus Immunization: Unsure Hx Influenza Vaccine This Season: Yes Medications and Allergies Active Medications: Active Medications Abacavir Sulfate (Ziagen) 600 mg PO HS [facility] Acetaminophen (Tylenol) 650 mg PO Q4H PRN PRN Reason: Temp > 100.4 Hydrocodone Bitart/Acetaminophen ([place] 10/325) 1 tab PO Q6H PRN PRN Reason: PAIN SCALE 6 TO 10 Last Admin: 01/22/19 16:57 Dose: 1 tab Hydrocodone Bitart/Acetaminophen ([place] 5/325) 1 tab PO Q6H PRN PRN Reason: PAIN SCALE 1 TO 5 Dolutegravir Sodium (Tivicay) 50 mg PO HS JACOBO Metronidazole/Sodium Chloride (Flagyl 500 Mg Inj) 100 mls @ 100 mls/hr IV.SIG Q8H [facility] Last Infusion: 01/22/19 12:45 Dose: Infused Sodium Chloride (Ns Inj) 1,000 mls @ 84 mls/hr IV.CONT .[id number] [facility] Last Admin: 01/22/19 09:39 Dose: Not Given Levofloxacin/Dextrose (Levaquin 500 Mg Premix Inj) 500 mg in 100 mls @ 100 mls/ hr IV.SIG Q24H [facility] Last Infusion: 01/22/19 01:40 Dose: Infused Lamivudine (Epivir) 300 mg PO HS [facility]AC[facility]O Morphine Sulfate (Morphine Inj) 2 mg IV.PUSH Q4H PRN PRN Reason: BREAKTHROUGH PAIN Ondansetron HCl (Zofran Inj) 4 mg IV.PUSH Q6H PRN PRN Reason: NAUSEA Abacavir- Dolutegravir-Lamivud [Triumeq] 1 Tab 0 each PO HS JACOBO Sodium Chloride (Ns Flush) 2 ml IV.FLUSH BID [facility] Last Admin: 01/22/19 09:39 Dose: Not Given Sodium Chloride (Ns Flush) 2 ml IV.FLUSH PRN PRN PRN Reason: FLUSH AFTER USING IV ACCESS Temazepam (Restoril) 15 mg PO HS PRN PRN Reason: INSOMNIA Allergies Allergy/AdvReac Type Severity Reaction Status Date / Time No Known Allergies Allergy Verified 01/21/19 14:30 Home Medications Medication Instructions Recorded Confirmed Type prydjsox-gfkmbagplekn-uqgptoo 1 tab PO HS 01/21/19 01/21/19 History [Triumeq] Physical Exam Vital signs: Vital Signs 01/21/19 20:15 01/22/19 00:00 01/22/19 01:35 Temperature 98.7 F 101.8 F H 102.2 F H Pulse Rate 88 104 H Respiratory Rate 15 20 Blood Pressure 132/76 116/59 L Pulse Oximetry 96 01/22/19 08:00 01/22/19 12:00 01/22/19 16:00 Temperature 97.7 F 98.7 F 99.6 F Pulse Rate 83 81 86 Respiratory Rate 18 20 20 Blood Pressure 123/60 126/59 L 129/58 L Pulse Oximetry 98 99 99 01/22/19 16:57 Temperature Pulse Rate Respiratory Rate 16 Blood Pressure Pulse Oximetry Intake & Output 01/22/19 01/22/19 01/23/19 06:59 18:59 06:59 Intake Total 800 / 800 580 / 580 Output Total 900 / 900 Balance 800 / 800 -320 / -320 Weight 93 kg Intake: IV 800 / 800 100 / 100 NS Inj 1,000 ML @ 125 mls/hr IV 500 / 500 .CONT .Q8H [facility] Rx#:[id number] Levaquin 500 mg Premix Inj 500 100 / 100 mg In 100 ml @ 100 mls/hr IV. SIG Q24H [facility] Rx#:[id number] Flagyl 500 MG Inj 100 ML @ 100 200 / 200 100 / 100 mls/hr IV.SIG Q8H [facility] Rx#: [id number] Oral 480 / 480 Output: Urine 900 / 900 Other: # Voids 4 Date of Last Bowel Movement 01/21/19 Weight On Admission 90.2 kg - Constitutional no acute distress, obese - Routine HEENT Exam Head: Present: normocephalic, atraumatic Eye: Present: PERRL ENT: Present: mucous membranes moist - Routine Neck Exam Present: supple, full ROM. Absent: JVD - Routine Respiratory Exam Present: CTA bilaterally - Routine Cardiovascular Exam Present: RRR, S1, S2 - Routine Abdominal Exam Present: soft, normoactive bowel sounds - Routine Extremities Exam Absent: cyanosis - Routine Skin Exam Present: intact Results - Labs CBC & Chem 7: 01/21/19 15:25 01/21/19 15:25 Labs: Laboratory Results - last 24 hr 01/21/19 01/21/19 17:30 19:55 Lactic Acid 0.8 Stl C.difficile DNA Amp Negative St C. diff Tox Epid 027 Negative Assessment and Plan - Plan SALMONELLA ENTERITIS HIV POSITIVE RECOMMENDATION CIPRO WITH FLAGYL WILL CONTINUE AND FU
[2019-01-22] MEDS ORDERED: ABACAVIR DOLUTEGRAVIR LAMIVUD PO SCH (21:00)
[2019-01-22] MEDS: Ciprofloxacin 400 MG/200 ML 400 MG/200 ML PIGGYBACK IV.SIG SCH (22:24)
[2019-01-23 06:58] LABS: Baso % (Auto) 0.4 % (0.0-2.0); Eos % (Auto) 0.4 % (0.0-4.0); Hematocrit 39.5 % (39.0-51.0); Lymph # (Auto) 0.9 th/mm3 (1.0-4.8); Lymph % (Auto) 21.2 % (9.0-44.0); Mean Corpuscular HGB Conc 34.4 % (32.0-36.0); Mean Corpuscular Hemoglobin 32.6 pg (27.0-34.0); Mean Corpuscular Volume 94.9 fL (80.0-100.0); Mean Platelet Volume 8.2 fL (7.0-11.0); Mono # (Auto) 0.5 th/mm3 (0.0-0.9); Mono % (Auto) 10.6 % (0.0-8.0); Neut # (Auto) 3.1 th/mm3 (1.8-7.7); Neut % (Auto) 67.4 % (16.0-70.0); Platelet Count 118 th/mm3 (150-450); Red Blood Count 4.16 mil/mm3 (4.50-5.90); White Blood Count 4.5 th/mm3 (4.0-11.0)
[2019-01-23 07:11] LABS: Hemoglobin 13.6 gm/dL (13.0-17.0)
[2019-01-23 07:22] LABS: Chloride 106 meq/L (98-107); Potassium 3.4 meq/L (3.5-5.1); Sodium 141 meq/L (136-145)
[2019-01-23 07:29] LABS: Calcium 8.2 mg/dL (8.5-10.1)
[2019-01-23] MEDS: Sod Chloride 0.9% Inj 1,000 ML IV.CONT SCH ×2 (08:02→19:47)
[2019-01-23] MEDS: Ciprofloxacin 400 MG/200 ML 400 MG/200 ML PIGGYBACK IV.SIG SCH ×2 (08:02→21:58)
[2019-01-23 08:25] LABS: Alanine Aminotransferase 19 U/L (12-78); Alkaline Phosphatase 57 U/L (45-117); Anion Gap 8 meq/L (5-15); Aspartate Aminotransferase 16 U/L (15-37); Blood Urea Nitrogen 7 mg/dL (7-18); Carbon Dioxide 26.7 meq/L (21.0-32.0); Glomerular Filtration Rate 79 mL/min (>89); Glucose,Random 103 mg/dL (74-106); Total Protein 6.3 g/dL (6.4-8.2)
[2019-01-23 08:26] LABS: Albumin 3.2 g/dL (3.4-5.0)
--- NOTE | 2019-01-23 11:20 | P.PNIM ---
Subjective Interval history: 29-year-old male who was seen and examined today for follow-up on Salmonella enteritis. Patient states he still having watery stools. He is only had a liquid diet. Asking if his diet can be advanced. Stable. Patient remains afebrile. Physical Exam Vital signs: Vital Signs 01/22/19 12:00 01/22/19 16:00 01/22/19 16:57 Temperature 98.7 F 99.6 F Pulse Rate 81 86 Respiratory Rate 20 20 16 Blood Pressure 126/59 L 129/58 L Pulse Oximetry 99 99 01/22/19 20:00 01/23/19 00:00 01/23/19 07:48 Temperature 99 F 99.1 F 96.7 F L Pulse Rate 80 81 74 Respiratory Rate 20 20 20 Blood Pressure 125/63 123/61 130/71 Pulse Oximetry 96 97 100 01/23/19 08:00 Temperature Pulse Rate Respiratory Rate 16 Blood Pressure Pulse Oximetry Intake & Output 01/22/19 01/23/19 01/23/19 18:59 06:59 18:59 Intake Total 1060 / 1060 1292 / 1292 1200 / 1200 Output Total 900 / 900 Balance 160 / 160 1292 / 1292 1200 / 1200 Weight 91.5 kg Intake: IV 580 / 580 1292 / 1292 1200 / 1200 NS Inj 1,000 ML @ 84 mls/hr IV. 480 / 480 892 / 892 1000 / 1000 CONT .[id number] [facility] Rx#: [id number] Cipro 400 MG/200 ML Inj 400 mg 200 / 200 200 / 200 In 200 ml @ 200 mls/hr IV.SIG Q12H [facility] Rx#:[id number] Flagyl 500 MG Inj 100 ML @ 100 100 / 100 200 / 200 mls/hr IV.SIG Q8H [facility] Rx#: [id number] Oral 480 / 480 Output: Urine 900 / 900 Other: # Voids 4 Date of Last Bowel Movement 01/22/19 Narrative: GENERAL: Well-developed, well-nourished, in no acute distress. alert and orientated HEENT: Head is normocephalic without any lesions or masses noted. Facial features are symmetric. Eyes: Extraocular muscles are intact. Conjunctivae were clear. NECK: Supple without any masses. Trachea midline no deviation. No JVD, CARDIAC: Regular rhythm, regular rate. S1/S2 are heard. No murmurs gallops or rubs. LUNGS: Clear to auscultation bilaterally. No wheeze, rhonchi or rales. No use of accessory muscles on inspiration or expiration. ABDOMEN: Soft, nontender. Nondistended. Bowel sounds heard in all 4 quadrants. No organomegaly or masses. Negative rebound, negative guarding EXTREMITIES: No edema, pulses are equal bilaterally. No cyanosis or clubbing NEUROLOGY: Mood and affect appear appropriate. Cranial nerves II through XII grossly intact. Moving all extremities, speech is clear Results Labs CBC & Chem 7: 01/23/19 05:51 01/23/19 05:51 Labs: Microbiology 01/21/19 16:05 Blood - Peripheral Aerobic Blood Culture - Preliminary No growth in 2 days 01/21/19 16:05 Blood - Peripheral Anaerobic Blood Culture - Preliminary No growth in 2 days 01/21/19 15:25 Blood - Peripheral Aerobic Blood Culture - Preliminary No growth in 2 days 01/21/19 15:25 Blood - Peripheral Anaerobic Blood Culture - Preliminary No growth in 2 days 01/21/19 17:30 Stool Enteric Pathogens (PCR) - Final Salmonella species Assessment and Plan Plan Sepsis: Patient originally met criteria with fever, tachycardia, lactic acid level, colitis CT scan indicating entire colon colitis Stool cultures indicating Salmonella infection C. difficile is negative Blood cultures are negative for 2 days Continue Cipro and Flagyl IV Colitis CT abdomen with finding of ventral bowel wall thickening involving the entire colon most pronounced in the ascending and transverse colon, suggestive of colitis Currently on IV Cipro and Flagyl Advance to a regular diet Continue monitor stool output and once patient starts improving could anticipate discharge HIV positive status Continue with triple therapy Consult Dr. Berrios, patient's HIV specialist DVT prophylaxis: Patient is a low risk for VT E, encourage ambulation Sequential compression devices Discussed Condition With: Patient, nursing staff, Dr. Elliott Progress Note: Quality VTE Deep Vein Thrombosis/Pulmonary Embolism Present on Admission: No
--- NOTE | 2019-01-23 12:33 | P.PNID ---
Subjective Remarks: ID FU DR BARNES FEELING BETTER STOOLS STILL WATERY NO FEVER Antibiotics: CIPRO/FLAGYL Allergies/Adverse Reactions: Allergies No Known Allergies Allergy (Verified 01/21/19 14:30) Objective Vital Signs 01/22/19 16:00 01/22/19 16:57 01/22/19 20:00 Temperature 99.6 F 99 F Pulse Rate 86 80 Respiratory Rate 20 16 20 Blood Pressure 129/58 L 125/63 Pulse Oximetry 99 96 01/23/19 00:00 01/23/19 07:48 01/23/19 08:00 Temperature 99.1 F 96.7 F L Pulse Rate 81 74 Respiratory Rate 20 20 16 Blood Pressure 123/61 130/71 Pulse Oximetry 97 100 Intake & Output 01/22/19 01/23/19 01/23/19 18:59 06:59 18:59 Intake Total 1060 / 1060 1292 / 1292 1200 / 1200 Output Total 900 / 900 Balance 160 / 160 1292 / 1292 1200 / 1200 Weight 91.5 kg Intake: IV 580 / 580 1292 / 1292 1200 / 1200 NS Inj 1,000 ML @ 84 mls/hr IV. 480 / 480 892 / 892 1000 / 1000 CONT .[id number] [facility] Rx#: [id number] Cipro 400 MG/200 ML Inj 400 mg 200 / 200 200 / 200 In 200 ml @ 200 mls/hr IV.SIG Q12H [facility] Rx#:[id number] Flagyl 500 MG Inj 100 ML @ 100 100 / 100 200 / 200 mls/hr IV.SIG Q8H [facility] Rx#: [id number] Oral 480 / 480 Output: Urine 900 / 900 Other: # Voids 4 Date of Last Bowel Movement 01/22/19 01/21/19 16:05 Blood - Peripheral Aerobic Blood Culture - Preliminary No growth in 2 days 01/21/19 16:05 Blood - Peripheral Anaerobic Blood Culture - Preliminary No growth in 2 days 01/21/19 15:25 Blood - Peripheral Aerobic Blood Culture - Preliminary No growth in 2 days 01/21/19 15:25 Blood - Peripheral Anaerobic Blood Culture - Preliminary No growth in 2 days 01/21/19 17:30 Stool Enteric Pathogens (PCR) - Final Salmonella species Lab - Hematology Results 01/21/19 01/23/19 15:25 05:51 CBC w Diff Auto diff final Auto diff final WBC 7.6 4.5 RBC 4.87 4.16 L Hgb 16.0 13.6 D Hct 46.0 39.5 MCV 94.5 94.9 MCH 32.8 32.6 MCHC 34.7 34.4 RDW 12.5 13.0 Plt Count 135 L 118 L MPV 7.5 8.2 Neut % (Auto) 85.0 H 67.4 Lymph % (Auto) 9.1 21.2 [place] % (Auto) 5.6 10.6 H Eos % (Auto) 0.1 0.4 Baso % (Auto) 0.2 0.4 Neut # (Auto) 6.5 3.1 Lymph # (Auto) 0.7 L 0.9 L [place] # (Auto) 0.4 0.5 Eos # (Auto) 0.0 0.0 Baso # (Auto) 0.0 0.0 WBC Differential . . Differential Comment . . Lab - Chemistry Results 01/21/19 01/21/19 01/21/19 15:25 16:45 19:55 Sodium 132 L Potassium 3.9 Chloride 101 Carbon Dioxide 23.3 Anion Gap 8 BUN 10 Creatinine 1.30 Estimated GFR 65 L Random Glucose 146 H Lactic Acid 2.1 H 0.8 Calcium 8.7 Magnesium 1.8 Total Bilirubin 1.0 AST 28 ALT 22 Alkaline Phosphatase 81 Total Protein 8.1 Albumin 4.1 Lipase 49 L 01/23/19 05:51 Sodium 141 Potassium 3.4 L Chloride 106 Carbon Dioxide 26.7 Anion Gap 8 BUN 7 Creatinine 1.10 Estimated GFR 79 L Random Glucose 103 Lactic Acid Calcium 8.2 L Magnesium Total Bilirubin 0.7 AST 16 ALT 19 Alkaline Phosphatase 57 Total Protein 6.3 L D Albumin 3.2 L D Lipase Imaging: ITS Impressions Abdomen/Pelvis CT 01/21/19 16:28 CONCLUSION: 1. Colitis. Physical Exam: AWAKE/ OX 3 PERRL CHEST CTA CARDIAC RRR ABD: SOFT ACTIVE BS EXT: NO EDEMA Assessment and Plan - Plan RECOMMENDATIONS CONTINUE CIPRO/ FLAGYL FOLLOW UP WHEN CLINICALLY BETTER CAN CHANGE TO PO WILL FU
[2019-01-24 08:17] VITALS: BP 118/75; PULSE 70; RESP 22; TEMP 97; O2SAT 100
[2019-01-24] MEDS: Ciprofloxacin 400 MG/200 ML 400 MG/200 ML PIGGYBACK IV.SIG SCH (09:04)
[2019-01-24] MEDS: Sod Chloride 0.9% Inj 1,000 ML IV.CONT SCH (09:05)
--- NOTE | 2019-01-24 09:31 | P.DS ---
DS: Providers Date of admission: 01/21/19 20:03 Primary care physician: Ene Berrios MD Consults: 01/22/19 10:05 Consult to Infectious Diseases Routine Consulting Provider: Ene Berrios Reason for Consultation: Patient known to Dr. Berrios, please evaluate and advise for therapy as patient with colitis Notified:: Service Spoke with:: Alma Date Notified:: 01/22/19 Time Notified:: 10:14 Ordering Provider: RUSTAM Anticipated date of discharge: 01/24/19 Brief History from admission: 29-year-old male for past medical history of HIV currently on triple therapy, presented to the ED for evaluation of worsening history of watery diarrhea times 2 days duration associated with febrile episode and abdominal cramping. Patient was recently started on triple therapy for H. pylori 3 days ago and he reported some improvement of epigastric pain. Patient endorsed 20-30 times watery stool without any bloody diarrhea per day; and since admission he has had over [address] abdomen and pelvics in the ED revealed ventral bowel wall thickening involving the entire colon most pronounced in the ascending and transverse colon, suggestive of colitis for which patient is currently on IV antibiotics including Levaquin and Flagyl. C. difficile PCR was negative pending ST enteric pathogen PCR. DS: Diagnosis Discharge Diagnosis (1) Salmonella enteritis: Status: Acute (2) Sepsis: Status: Acute (3) Colitis: Status: Acute DS: Summary 29-year-old male with known history of HIV currently on therapy who presents emergency department because of 2-day history of diarrhea associated with fever, abdominal cramping. Patient had evaluation done in emergency department and found to have criteria for sepsis with fever, tachycardia, lactic acidosis, CT scan indicating colitis. Patient was admitted to hospital with empirical antibiotics, IV fluid, additional workup. Further studies were performed and C. difficile culture was negative, enteric pathogen did indicate Salmonella species. Infectious disease was consulted and recommending Flagyl and Cipro for antibiotics. Patient continued to have watery diarrhea. His diet was advanced to regular diet. He did tolerate treatment well. He was eating without any complications. His bowel movement started getting more formed. Patient clinically stable at this time. Is recommend the patient continue follow-up with his infectious disease doctor. Patient be discharged with antibiotics to include Cipro and Flagyl. We will plan discharge accordingly. Time Spent with Patient Total time spent providing and/or coordinating discharge services: Greater than 30 minutes Quality: VTE Deep Vein Thrombosis/Pulmonary Embolism Present on Admission: No Exam Narrative Exam Narrative: GENERAL: Well-developed, well-nourished, in no acute distress. alert and orientated HEENT: Head is normocephalic without any lesions or masses noted. Facial features are symmetric. Eyes: Extraocular muscles are intact. Conjunctivae were clear. NECK: Supple without any masses. Trachea midline no deviation. No JVD, CARDIAC: Regular rhythm, regular rate. S1/S2 are heard. No murmurs gallops or rubs. LUNGS: Clear to auscultation bilaterally. No wheeze, rhonchi or rales. No use of accessory muscles on inspiration or expiration. ABDOMEN: Soft, nontender. Nondistended. Bowel sounds heard in all 4 quadrants. No organomegaly or masses. Negative rebound, negative guarding EXTREMITIES: No edema, pulses are equal bilaterally. No cyanosis or clubbing NEUROLOGY: Mood and affect appear appropriate. Cranial nerves II through XII grossly intact. Moving all extremities, speech is clear Results Labs on day of discharge: Preliminary micro results at discharge 01/21/19 16:05 Aerobic Blood Culture - Preliminary Blood - Peripheral No growth in 2 days Anaerobic Blood Culture - Preliminary No growth in 2 days 01/21/19 15:25 Aerobic Blood Culture - Preliminary Blood - Peripheral No growth in 2 days Anaerobic Blood Culture - Preliminary No growth in 2 days Impressions ITS Impressions Abdomen/Pelvis CT 01/21/19 16:28 CONCLUSION: 1. Colitis. Additional Comments Discussed with patient, nursing staff, Dr. Elliott Discharge Plan Discharge Disposition Patient Disposition: Discharge Home Discharge Order Discharge Orders: Discharge Order (Routine); Ordered 01/24/19 Ordered By: Manas Walker Discharge Details Anticipated Discharge Date: 01/24/19 Physicians Team Primary Care Provider: Ene Berrios Attending Provider: Ted Elliott Other Providers: Ene Berrios Rxs /Orders / Referrals /Forms Prescriptions: New ciprofloxacin HCl 500 mg tablet 500 mg PO Q12H Qty: 14 RF: 0 metronidazole [Flagyl] 500 mg tablet 500 mg PO Q8H 7 Days Qty: 21 RF: 0 Continue tbbslbsy-cjnxmdstclgl-ectkaxo [Triumeq] 600-50-300 mg Tablet 1 tab PO HS RF: 0 Referrals: Ene Berrios MD [Primary Care Provider] - See Instructions (Follow-up with Dr. Lozano in 1 week) Discharge Interventions Interventions: Discharge Planning - Case Management Last Done: 01/22/19 10:43 Status ED Status: Left Department
== END 2019-01-24 10:41 | disposition home or self-care (01) | DRG 872 ==
LOC: PHEDA 13:56 → PHED 13:56 → PH3 20:15
PROVIDERS: ADMIT Hospitalist; ATTEND Hospitalist
DX: A41.9 Sepsis, unspecified organism; Z21 Asymptomatic human immunodeficiency virus [HIV] infection status; Z83.3 Family history of diabetes mellitus; R00.0 Tachycardia, unspecified; Z87.442 Personal history of urinary calculi; E87.2 Acidosis; A02.0 Salmonella enteritis; Z87.891 Personal history of nicotine dependence
CPT/HCPCS: 74177; 80053; 81001; 83605; 83690; 83735; 85025; 87040; 87493; 87506; 90761; 90774; 90775; 96361; 96374; 96375; 99285; C8952; J0744; J1885; J1956; J2270; J2405; J2543; J7030; Q9967